=== PATIENT | male | born 1960 | race Caucasian/White ===

== ENCOUNTER 2017-06-03 14:44 | Inpatient (IN) | payer MEDICAID ==
[~2017-06-03] VITALS: Ht 170.2 cm; Wt 103.5 kg
[2017-06-03] MEDS ORDERED: SODIUM CHLORIDE 0.9% 1,000 ML IVB ONE (15:33)
[2017-06-03] MEDS ORDERED: cefTRIAXone 1GM/50ML D5W 50 ML IV ONE (15:45)
[2017-06-03] MEDS ORDERED: ASPirin 81 mg TAB PO ONE (15:45)
[2017-06-03] MEDS ORDERED: KETOROLAC TROMETH 30 MG/ML 1ML VIAL IV ONE (15:45)
[2017-06-03 17:05] LABS: Basophils # (auto) 0.1 uL; Basophils % (auto) 2.2 % (0.0-2.0); Eosinophils # (auto) 0.2 uL; Eosinophils % (auto) 2.3 % (0.0-7.0); Hematocrit 41.9 % (41.0-53.0); Hemoglobin 14.2 g/dL (13.5-17.5); Lymphocytes # (auto) 1.9 uL; Lymphocytes % (auto) 27.4 % (10.0-50.0); Mean Corpuscular Hemoglobin 30.2 pg (28.0-32.0); Mean Corpuscular Hgb Conc. 33.9 g/dL (32.0-36.0); Mean Corpuscular Volume 89.1 fL (80.0-100.0); Monocytes # (auto) 0.6 uL; Monocytes % (auto) 8.6 % (0.0-12.0); Neutrophils # (auto) 4.1 uL; Neutrophils % (auto) 59.5 % (37.0-80.0); Nucleated Red Blood Cells % 0.2 %; Platelet Count (auto) 297 10^3/uL (140-450); White Blood Cell 6.9 10^3/uL (4.4-10.8)
[2017-06-03] MEDS ORDERED: ACETAMINOPHEN/CODEINE#3 (300/30mg) TAB PO ONE (17:15)
[2017-06-03 17:23] LABS: INR 1.14 (0.9-1.15); Partial Thromboplastin Time 27.3 sec (22.64-33.71); Prothrombin Time 12.4 sec (9.37-12.3)
[2017-06-03 17:25] LABS: Alanine Aminotransferase 33 U/L (16-61); Alkaline Phosphatase 67 U/L (45-117); Anion Gap 11 (5-15); Aspartate Aminotransferase 56 U/L (15-37); BUN/Creatinine Ratio 10.3; Bilirubin, Total 0.8 mg/dL (0.2-1.0); Blood Urea Nitrogen 12 mg/dL (7-18); Calcium 8.8 mg/dL (8.5-10.1); Carbon Dioxide 25 mmol/L (21-32); Chloride 101 mmol/L (98-107); GFR African American 82 mL/min; GFR Non-African American 68 mL/min; Glucose 84 mg/dL (74-106); Sodium 137 mmol/L (136-145); Total Protein 8.6 g/dL (6.4-8.2)
[2017-06-03] MEDS ORDERED: ENOXAPARIN SOD 100 MG/1 ML SYRINGE SC ONE (17:45)
[2017-06-03 18:45] LABS: Urine Bacteria NONE SEEN /hpf (None Seen); Urine Blood Negative /uL (Negative); Urine Hyaline Cast FEW /lpf (0 - 2); Urine Mucus FEW (None Seen); Urine Specific Gravity 1.026 (1.001-1.035); Urine WBC 4 /hpf (0 - 3)
[2017-06-03 19:07] LABS: Alcohol, Urine < 3.0 mg/dL (0-5); Amphetamine Screen, Urine NEGATIVE (NEGATIVE); Barbiturate Scree,Urine NEGATIVE (NEGATIVE); Benzodiazephine Screen, Urine POSITIVE (NEGATIVE); Cannabinoid Screen, Urine NEGATIVE (NEGATIVE); Cocaine Screen, Urine NEGATIVE (NEGATIVE); Opiate Scree,Urine POSITIVE (NEGATIVE); Phencyclidine Screen, Urine NEGATIVE (NEGATIVE)
[2017-06-03] MEDS ORDERED: ONDANSETRON HCL 4 MG/2 ML VIAL IV ONE (19:45)
[2017-06-03] MEDS ORDERED: HYDROmorphone HCL 2 MG/ML VL IV ONE (19:45)
[2017-06-03] MEDS ORDERED: IOHEXOL 350 MG/ML 100ML IJ ONE (20:34)
[2017-06-04] VITALS (7 sets, daily range): BP systolic 122–157; BP diastolic 75–95
[2017-06-04] MEDS ORDERED: POTASSIUM CHL 20 Meq TABLET PO ONE (01:15)
[2017-06-04] MEDS ORDERED: ONDANSETRON HCL 4 MG/2 ML VIAL IV ONE (03:00)
[2017-06-04] MEDS ORDERED: HYDROmorphone HCL 2 MG/ML VL IV ONE (03:00)
[2017-06-04] MEDS ORDERED: ACETAMINOPHEN 500 MG TAB PO PRN (04:30)
[2017-06-04] MEDS ORDERED: NITROGLYCERIN 0.4 MG SL TAB SL PRN (04:30)
[2017-06-04] MEDS ORDERED: ONDANSETRON HCL 4 MG/2 ML VIAL IV PRN (04:30)
[2017-06-04] MEDS ORDERED: MORPHINE SULFATE 10 MG/ML INJ 1ML SDV IV PRN (04:30)
[2017-06-04] MEDS: HYDROcodone-ACET 5/325MG TAB PO PRN ×5 (06:10→22:12)
[2017-06-04] MEDS: CLINDAMYCIN 600MG IV 50 ML IV SCH ×3 (06:22→22:11)
[2017-06-04 06:32] LABS: Cholesterol 106 mg/dL (< 200); HDL Cholesterol 28 mg/dL (40-59); LDL Cholesterol 78 mg/dL (< 100); Triglycerides 96 mg/dL (< 150)
[2017-06-04] MEDS: cefTRIAXone 1GM/50ML D5W 50 ML IV SCH (09:00)
[2017-06-04] MEDS: ASPirin-EC 81 mg tab PO SCH (10:08)
[2017-06-04] MEDS: HYDROmorphone HCL 2 MG/ML VL IV PRN ×4 (11:37→23:17)
[2017-06-04] MEDS ORDERED: ZOLP10TA PO (14:12)
[2017-06-04] MEDS ORDERED: FLUO20CA19 PO (14:12)
[2017-06-04] MEDS ORDERED: OMEP20CA74 PO (14:12)
[2017-06-04] MEDS ORDERED: HYDR-4683 PO ×2 (14:12)
[2017-06-04] MEDS ORDERED: ALPR1TAB2 PO (14:12)
[2017-06-04] MEDS: FLUoxetine HCL 20 MG CAP PO SCH (15:11)
[2017-06-04] MEDS: PANTOPRAZOLE 40 MG TAB PO SCH (15:11)
[2017-06-04] MEDS: ZOLPIDEM TARTRATE 5 MG TAB PO PRN (22:12)
[2017-06-05] MEDS: HYDROcodone-ACET 5/325MG TAB PO PRN ×5 (02:05→22:20)
[2017-06-05] MEDS: ALPRAZolam 0.5 MG TAB PO SCH ×3 (02:53→20:16)
[2017-06-05] MEDS: HYDROmorphone HCL 2 MG/ML VL IV PRN ×5 (05:17→22:20)
[2017-06-05 05:35] LABS: Basophils # (auto) 0.1 uL; Basophils % (auto) 1.4 % (0.0-2.0); Eosinophils # (auto) 0.2 uL; Eosinophils % (auto) 3.7 % (0.0-7.0); Hematocrit 35.7 % (41.0-53.0); Hemoglobin 12.1 g/dL (13.5-17.5); Lymphocytes # (auto) 1.5 uL; Lymphocytes % (auto) 28.8 % (10.0-50.0); Mean Corpuscular Hemoglobin 29.9 pg (28.0-32.0); Mean Corpuscular Volume 88.1 fL (80.0-100.0); Monocytes # (auto) 0.5 uL; Neutrophils # (auto) 3.1 uL; Neutrophils % (auto) 57.1 % (37.0-80.0); Nucleated Red Blood Cells % 0.1 %; Platelet Count (auto) 255 10^3/uL (140-450); Red Blood Cells 4.05 10^6/uL (4.5-5.90); White Blood Cell 5.4 10^3/uL (4.4-10.8)
[2017-06-05] MEDS: CLINDAMYCIN 600MG IV 50 ML IV SCH ×3 (05:40→20:15)
[2017-06-05 05:57] VITALS: BP 134/88
[2017-06-05 06:07] LABS: Albumin 2.7 g/dL (3.4-5.0); BUN/Creatinine Ratio 13.2; Bilirubin, Total 0.5 mg/dL (0.2-1.0); Calcium 8.6 mg/dL (8.5-10.1); Potassium 3.2 mmol/L (3.5-5.1); Total Protein 7.6 g/dL (6.4-8.2)
[2017-06-05] MEDS ORDERED: ADENOSINE 86 MG in GIVE UN-DILUTED 0 ML IV ONE (08:45)
[2017-06-05 09:00] VITALS: BP 151/95
[2017-06-05] MEDS: cefTRIAXone 1GM/50ML D5W 50 ML IV SCH (09:06)
[2017-06-05] MEDS ORDERED: ALPRAZolam 0.5 MG TAB PO SCH (10:00)
[2017-06-05] MEDS ORDERED: POTASSIUM CHLORIDE 40 MEQ, LIDOCAINE 1% (LOCAL ANESTH.) 4 ML in SODIUM CHL 0.9% 250 ML IV ONE (10:15)
[2017-06-05] MEDS: ASPirin-EC 81 mg tab PO SCH (10:18)
[2017-06-05] MEDS: PANTOPRAZOLE 40 MG TAB PO SCH (10:19)
[2017-06-05] MEDS: FLUoxetine HCL 20 MG CAP PO SCH (10:19)
[2017-06-05] MEDS ORDERED: IPRATROPIUM BROM 0.5 MG/2.5ML INH SOL ONE (10:51)
[2017-06-05] MEDS ORDERED: ALBUTEROL SULF 2.5 MG/0.5ML(0.5%) NEB SOLN ONE (10:51)
[2017-06-05 17:00] VITALS: BP 146/105
[2017-06-05] MEDS ORDERED: ASCORBIC ACID 500 MG TAB PO ONE (17:30)
[2017-06-05] MEDS ORDERED: MULTIPLE VITAMINS W/ MINERALS TAB PO ONE (17:30)
[2017-06-05] MEDS: ASCORBIC ACID 500 MG TAB PO SCH (20:15)
[2017-06-05 21:58] VITALS: BP 151/91
[2017-06-06] MEDS: ZOLPIDEM TARTRATE 5 MG TAB PO PRN ×2 (02:09→22:37)
[2017-06-06] MEDS: HYDROcodone-ACET 5/325MG TAB PO PRN ×4 (02:27→20:10)
[2017-06-06] MEDS: HYDROmorphone HCL 2 MG/ML VL IV PRN ×6 (02:28→22:30)
[2017-06-06 05:32] VITALS: BP 135/86
[2017-06-06] MEDS: CLINDAMYCIN 600MG IV 50 ML IV SCH ×3 (06:01→21:47)
[2017-06-06 07:55] LABS: BUN/Creatinine Ratio 9.1; Calcium 8.4 mg/dL (8.5-10.1); Potassium 3.3 mmol/L (3.5-5.1)
[2017-06-06 09:00] VITALS: BP 141/98
[2017-06-06] MEDS: cefTRIAXone 1GM/50ML D5W 50 ML IV SCH (09:16)
[2017-06-06] MEDS: ASPirin-EC 81 mg tab PO SCH (09:16)
[2017-06-06] MEDS: ALPRAZolam 0.5 MG TAB PO SCH ×2 (09:16→21:47)
[2017-06-06] MEDS: ASCORBIC ACID 500 MG TAB PO SCH ×2 (09:16→21:47)
[2017-06-06] MEDS: FLUoxetine HCL 20 MG CAP PO SCH (09:16)
[2017-06-06] MEDS: MULTIPLE VITAMINS W/ MINERALS TAB PO SCH (09:17)
[2017-06-06] MEDS: PANTOPRAZOLE 40 MG TAB PO SCH (09:17)
[2017-06-06] MEDS ORDERED: MULTIPLE VITAMINS W/ MINERALS TAB PO SCH (10:00)
[2017-06-06] MEDS ORDERED: POTASSIUM CHLORIDE 40 MEQ, LIDOCAINE 1% (LOCAL ANESTH.) 4 ML in SODIUM CHL 0.9% 250 ML IV ONE (11:00)
[2017-06-06 13:00] VITALS: BP 159/107
[2017-06-06 17:54] VITALS: BP 143/77
[2017-06-06 22:00] VITALS: BP 139/96
[2017-06-07] MEDS: HYDROmorphone HCL 2 MG/ML VL IV PRN (03:22)
[2017-06-07 05:00] VITALS: BP 123/85
[2017-06-07] MEDS: CLINDAMYCIN 600MG IV 50 ML IV SCH (05:42)
[2017-06-07] MEDS: HYDROcodone-ACET 5/325MG TAB PO PRN (05:42)
[2017-06-07 06:47] LABS: Albumin 2.7 g/dL (3.4-5.0); Calcium 8.8 mg/dL (8.5-10.1); Potassium 3.7 mmol/L (3.5-5.1)
[2017-06-07 06:50] LABS: BUN/Creatinine Ratio 11.4
[2017-06-07 06:53] LABS: Bilirubin, Total 0.4 mg/dL (0.2-1.0); Total Protein 7.7 g/dL (6.4-8.2)
[2017-06-07 07:29] LABS: Basophils # (auto) 0 uL; Basophils % (auto) 0.8 % (0.0-2.0); Eosinophils # (auto) 0.4 uL; Eosinophils % (auto) 6.6 % (0.0-7.0); Hematocrit 39.4 % (41.0-53.0); Lymphocytes # (auto) 1.4 uL; Lymphocytes % (auto) 22.3 % (10.0-50.0); Mean Corpuscular Hemoglobin 29.5 pg (28.0-32.0); Mean Corpuscular Volume 89.3 fL (80.0-100.0); Monocytes # (auto) 0.5 uL; Neutrophils # (auto) 3.9 uL; Neutrophils % (auto) 62.3 % (37.0-80.0); Nucleated Red Blood Cells % 0.1 %; Platelet Count (auto) 298 10^3/uL (140-450); Red Blood Cells 4.41 10^6/uL (4.5-5.90); Red Cell Distribution Width 14.5 % (11.8-14.3); White Blood Cell 6.2 10^3/uL (4.4-10.8)
[2017-06-07 08:35] VITALS: BP 158/98
[2017-06-07] MEDS: ALPRAZolam 0.5 MG TAB PO SCH (09:07)
[2017-06-07] MEDS: PANTOPRAZOLE 40 MG TAB PO SCH (09:07)
[2017-06-07] MEDS: MULTIPLE VITAMINS W/ MINERALS TAB PO SCH (09:07)
[2017-06-07] MEDS: FLUoxetine HCL 20 MG CAP PO SCH (09:07)
[2017-06-07] MEDS: cefTRIAXone 1GM/50ML D5W 50 ML IV SCH (09:07)
[2017-06-07] MEDS: ASCORBIC ACID 500 MG TAB PO SCH (09:07)
[2017-06-07] MEDS: ASPirin-EC 81 mg tab PO SCH (09:07)
== END 2017-06-07 09:56 | disposition home or self-care (01) | DRG 383 ==
LOC: ER 14:46 → TELE-EAST 14:47
PROVIDERS: ADMIT Nurse Practitioner Family; ATTEND Internal Medicine
DX: L03.115 Cellulitis of right lower limb (principal); E11.51 Type 2 diabetes mellitus with diabetic peripheral angiopathy without gangrene; E44.0 Moderate protein-calorie malnutrition; L97.919 Non-pressure chronic ulcer of unspecified part of right lower leg with unspecified severity; E87.6 Hypokalemia; R07.89 Other chest pain; I25.10 Atherosclerotic heart disease of native coronary artery without angina pectoris; I10 Essential (primary) hypertension; E78.5 Hyperlipidemia, unspecified; F17.210 Nicotine dependence, cigarettes, uncomplicated; F32.9 Major depressive disorder, single episode, unspecified; F41.9 Anxiety disorder, unspecified; I87.2 Venous insufficiency (chronic) (peripheral); I83.019 Varicose veins of right lower extremity with ulcer of unspecified site; F10.20 Alcohol dependence, uncomplicated; F15.90 Other stimulant use, unspecified, uncomplicated; F11.90 Opioid use, unspecified, uncomplicated; Z68.35 Body mass index [BMI] 35.0-35.9, adult; Z59.0 Homelessness; Z82.3 Family history of stroke; Z91.19 Patient's noncompliance with other medical treatment and regimen; Z79.84 Long term (current) use of oral hypoglycemic drugs; Z86.14 Personal history of Methicillin resistant Staphylococcus aureus infection; Z71.6 Tobacco abuse counseling; Z71.3 Dietary counseling and surveillance
CPT/HCPCS: 36415; 71010; 71275; 73590; 78452; 80048; 80053; 80061; 80307; 81001; 82550; 83036; 83735; 83880; 84443; 84484; 85025; 85379; 85610; 85730; 87040; 87077; 87086; 87186; 87205; 93005; 93017; 93306; 93970; 94640; 96365; 96372; 96375; 96376; J0153; J0696; J2001; J2405; J3490

== ENCOUNTER 2017-12-28 10:12 | Emergency (ER) | payer MEDICAID ==
[~2017-12-28] VITALS: Ht 170.2 cm; Wt 96.2 kg
[~2017-12-28 10:12] MED LIST: ALPR1TAB2 PO; FLUO20CA19 PO; HYDR-4683 PO; OMEP20CA74 PO; ZOLP10TA PO
[2017-12-28] MEDS ORDERED: cloNIDine HCL 0.1 MG TAB PO ONE (10:30)
[2017-12-28 11:06] VITALS: BP 131/85
== END 2017-12-28 11:13 | disposition home or self-care (01) ==
LOC: ER 10:18
DX: I10 Essential (primary) hypertension (principal); F41.9 Anxiety disorder, unspecified; E11.9 Type 2 diabetes mellitus without complications; F17.210 Nicotine dependence, cigarettes, uncomplicated; Z90.49 Acquired absence of other specified parts of digestive tract

== ENCOUNTER 2018-01-18 11:31 | Emergency (ER) | payer MEDICAID ==
[~2018-01-18] VITALS: Ht 177.8 cm; Wt 117.9 kg
[2018-01-18 11:40] VITALS: BP 114/76
[2018-01-18] MEDS ORDERED: KETOROLAC TROMETH 30 MG/ML 1ML VIAL IV ONE (11:45)
[2018-01-18] MEDS ORDERED: KETOROLAC TROMETH 60MG/2ML VIAL IM ONE (12:00)
[2018-01-18 12:09] LABS: Basophils # (auto) 0.1 uL; Basophils % (auto) 1.7 % (0.0-2.0); Eosinophils # (auto) 0.1 uL; Eosinophils % (auto) 2.2 % (0.0-7.0); Hematocrit 41.3 % (41.0-53.0); Hemoglobin 13.5 g/dL (13.5-17.5); Lymphocytes # (auto) 1.8 uL; Lymphocytes % (auto) 43.3 % (10.0-50.0); Mean Corpuscular Hemoglobin 28.9 pg (28.0-32.0); Mean Corpuscular Hgb Conc. 32.7 g/dL (32.0-36.0); Mean Corpuscular Volume 88.4 fL (80.0-100.0); Monocytes # (auto) 0.3 uL; Monocytes % (auto) 6.8 % (0.0-12.0); Neutrophils # (auto) 1.9 uL; Nucleated Red Blood Cells % 0.2 %; Platelet Count (auto) 278 10^3/uL (140-450); Red Blood Cells 4.67 10^6/uL (4.5-5.90); Red Cell Distribution Width 13.9 % (11.8-14.3); White Blood Cell 4.1 10^3/uL (4.4-10.8)
[2018-01-18 12:26] LABS: Alanine Aminotransferase 26 U/L (16-61); Albumin 3.3 g/dL (3.4-5.0); Anion Gap 9 (5-15); Aspartate Aminotransferase 26 U/L (15-37); BUN/Creatinine Ratio 10.6; Blood Urea Nitrogen 10 mg/dL (7-18); Calcium 8.4 mg/dL (8.5-10.1); Carbon Dioxide 22 mmol/L (21-32); Chloride 110 mmol/L (98-107); GFR African American 106 mL/min; GFR Non-African American 88 mL/min; Glucose 95 mg/dL (74-106); Magnesium 2.2 mg/dL (1.6-2.6); Potassium 3.9 mmol/L (3.5-5.1); Sodium 141 mmol/L (136-145)
[2018-01-18 12:31] LABS: Alkaline Phosphatase 84 U/L (45-117); Bilirubin, Total 0.8 mg/dL (0.2-1.0); Total Protein 7.8 g/dL (6.4-8.2)
== END 2018-01-18 15:20 | disposition left against medical advice (07) ==
LOC: EDUNIT# 11:31 → EDBD 11:31 → ER 11:34
DX: R07.89 Other chest pain (principal); F15.10 Other stimulant abuse, uncomplicated; E11.9 Type 2 diabetes mellitus without complications; I10 Essential (primary) hypertension; F17.210 Nicotine dependence, cigarettes, uncomplicated; Z90.49 Acquired absence of other specified parts of digestive tract; Z79.899 Other long term (current) drug therapy
CPT/HCPCS: 36415; 71045; 80053; 83735; 84484; 85025; 93005; 94761

== ENCOUNTER 2018-01-29 00:08 | Emergency (ER) | payer MEDICAID ==
[~2018-01-29] VITALS: Ht 170.2 cm; Wt 111.6 kg
[2018-01-29 00:20] VITALS: BP 111/71
== END 2018-01-29 03:39 | disposition left against medical advice (07) ==
LOC: ER 00:10
DX: R07.9 Chest pain, unspecified (principal); Z53.21 Procedure and treatment not carried out due to patient leaving prior to being seen by health care provider
CPT/HCPCS: 71045; 93005

== ENCOUNTER 2018-04-01 21:20 | Emergency (ER) | payer MEDICAID ==
[~2018-04-01] VITALS: Ht 170.2 cm; Wt 99.8 kg
[2018-04-01 21:33] VITALS: BP 172/106
[2018-04-01 22:01] LABS: Basophils # (auto) 0.1 uL; Basophils % (auto) 0.9 % (0.0-2.0); Eosinophils # (auto) 0.3 uL; Eosinophils % (auto) 5.1 % (0.0-7.0); Hematocrit 35.1 % (41.0-53.0); Hemoglobin 11.9 g/dL (13.5-17.5); Lymphocytes # (auto) 1.4 uL; Lymphocytes % (auto) 24.1 % (10.0-50.0); Mean Corpuscular Hemoglobin 30.1 pg (28.0-32.0); Mean Corpuscular Hgb Conc. 33.8 g/dL (32.0-36.0); Monocytes # (auto) 0.5 uL; Neutrophils # (auto) 3.6 uL; Neutrophils % (auto) 61.9 % (37.0-80.0); Nucleated Red Blood Cells % 0.1 %; Platelet Count (auto) 189 10^3/uL (140-450); Red Blood Cells 3.95 10^6/uL (4.5-5.90); Red Cell Distribution Width 14.1 % (11.8-14.3); White Blood Cell 5.8 10^3/uL (4.4-10.8)
[2018-04-01 22:18] LABS: Albumin 2.9 g/dL (3.4-5.0); Anion Gap 11 (5-15); Blood Urea Nitrogen 11 mg/dL (7-18); Calcium 8.1 mg/dL (8.5-10.1); Carbon Dioxide 22 mmol/L (21-32); Chloride 109 mmol/L (98-107); Glucose 114 mg/dL (74-106); Potassium 3.7 mmol/L (3.5-5.1); Sodium 142 mmol/L (136-145)
[2018-04-01 22:19] LABS: GFR African American 109 mL/min; GFR Non-African American 90 mL/min; INR 1.07 (0.9-1.15); Partial Thromboplastin Time 29.6 sec (23.78-33.04); Prothrombin Time 11.4 sec (9.27-12.13)
[2018-04-01 22:25] LABS: Alanine Aminotransferase 42 U/L (16-61); Alkaline Phosphatase 72 U/L (45-117); Aspartate Aminotransferase 36 U/L (15-37); Bilirubin, Total 0.6 mg/dL (0.2-1.0); Total Protein 7.2 g/dL (6.4-8.2)
== END 2018-04-02 01:10 | disposition left against medical advice (07) ==
LOC: EDBD 21:20 → ER 21:28
DX: R07.89 Other chest pain (principal); R10.9 Unspecified abdominal pain; R06.02 Shortness of breath; Z53.21 Procedure and treatment not carried out due to patient leaving prior to being seen by health care provider
CPT/HCPCS: 36415; 80053; 80320; 83880; 84484; 85025; 85610; 85730

== ENCOUNTER 2018-10-01 15:09 | Emergency (ER) | payer MEDICAID ==
[~2018-10-01] VITALS: Ht 180.3 cm; Wt 90.7 kg
[2018-10-01] MEDS ORDERED: SODIUM CHLORIDE 0.9% 1,000 ML IVB ONE (15:25)
[2018-10-01] MEDS ORDERED: NALOXONE HCL 1MG/ML 2ML SYRINGE IV ONE (15:30)
[2018-10-01 18:27] LABS: Basophils # (auto) 0 uL; Basophils % (auto) 0.3 % (0.0-2.0); Eosinophils # (auto) 0 uL; Eosinophils % (auto) 0.3 % (0.0-7.0); Hematocrit 45.7 % (41.0-53.0); Hemoglobin 14.8 g/dL (13.5-17.5); Lymphocytes # (auto) 0.7 uL; Lymphocytes % (auto) 6.3 % (10.0-50.0); Mean Corpuscular Hemoglobin 30.6 pg (28.0-32.0); Mean Corpuscular Hgb Conc. 32.3 g/dL (32.0-36.0); Mean Corpuscular Volume 94.5 fL (80.0-100.0); Monocytes # (auto) 0.4 uL; Monocytes % (auto) 3.6 % (0.0-12.0); Neutrophils # (auto) 10.6 uL; Neutrophils % (auto) 89.5 % (37.0-80.0); Platelet Count (auto) 242 10^3/uL (140-450); Red Blood Cells 4.84 10^6/uL (4.5-5.90); Red Cell Distribution Width 13.8 % (11.8-14.3); White Blood Cell 11.8 10^3/uL (4.4-10.8)
[2018-10-01 18:45] LABS: Alanine Aminotransferase 82 U/L (16-61); Albumin 3.7 g/dL (3.4-5.0); Anion Gap 5 (5-15); Aspartate Aminotransferase 161 U/L (15-37); Blood Alcohol < 3.0 mg/dL (0-5); Blood Urea Nitrogen 12 mg/dL (7-18); Calcium 9.1 mg/dL (8.5-10.1); Carbon Dioxide 26 mmol/L (21-32); Chloride 108 mmol/L (98-107); Glucose 119 mg/dL (74-106); Magnesium 2.6 mg/dL (1.6-2.6); Potassium 4.2 mmol/L (3.5-5.1); Sodium 139 mmol/L (136-145)
[2018-10-01 18:50] LABS: Alkaline Phosphatase 92 U/L (45-117); BUN/Creatinine Ratio 10.9; Bilirubin, Total 0.9 mg/dL (0.2-1.0); GFR African American 88 mL/min; GFR Non-African American 73 mL/min; Total Protein 8.6 g/dL (6.4-8.2)
[2018-10-01 22:00] VITALS: BP 112/62
== END 2018-10-01 22:38 | disposition home or self-care (01) ==
LOC: EDUNIT# 15:09 → EDBD 15:09 → ER 15:19
DX: F11.10 Opioid abuse, uncomplicated (principal); J18.9 Pneumonia, unspecified organism; E11.9 Type 2 diabetes mellitus without complications; I10 Essential (primary) hypertension; F17.210 Nicotine dependence, cigarettes, uncomplicated; F15.90 Other stimulant use, unspecified, uncomplicated; Z79.899 Other long term (current) drug therapy; Z90.49 Acquired absence of other specified parts of digestive tract
CPT/HCPCS: 36415; 71045; 80053; 80320; 83735; 83880; 84484; 85025; 93005; 94761; 96361; 96374; 99284; J2310; J7030

== ENCOUNTER 2018-11-16 20:21 | Emergency (ER) | payer MEDICAID ==
[~2018-11-16] VITALS: Ht 170.2 cm; Wt 99.8 kg
[2018-11-16 21:13] VITALS: BP 168/89
[2018-11-16] MEDS ORDERED: HYDROcodone-ACET 10/325MG TAB PO ONE (22:15)
[2018-11-16] MEDS ORDERED: BACLOFEN 10 MG TAB PO ONE (22:15)
== END 2018-11-16 22:45 | disposition home or self-care (01) ==
LOC: ER 20:21
DX: F31.9 Bipolar disorder, unspecified (principal); G89.29 Other chronic pain; F41.9 Anxiety disorder, unspecified; E11.9 Type 2 diabetes mellitus without complications; I10 Essential (primary) hypertension; F17.210 Nicotine dependence, cigarettes, uncomplicated; F15.90 Other stimulant use, unspecified, uncomplicated; Z76.0 Encounter for issue of repeat prescription; Z90.49 Acquired absence of other specified parts of digestive tract

== ENCOUNTER 2019-02-21 09:32 | Emergency (ER) | payer MEDICAID ==
[~2019-02-21] VITALS: Ht 170.2 cm; Wt 99.8 kg
[~2019-02-21 09:32] MED LIST changes: -HYDR-4683 PO; +HYDR-4833 PO
[2019-02-21 10:29] VITALS: BP 118/70
[2019-02-21] MEDS ORDERED: NITROGLYCERIN 0.4 MG SL TAB SL ONE (11:00)
[2019-02-21] MEDS ORDERED: ASPirin 81 mg TAB PO ONE (11:00)
[2019-02-21 11:01] LABS: Basophils # (auto) 0.1 uL; Eosinophils # (auto) 0.2 uL; Eosinophils % (auto) 3.2 % (0.0-7.0); Hematocrit 46.6 % (41.0-53.0); Hemoglobin 15.6 g/dL (13.5-17.5); Lymphocytes # (auto) 1.7 uL; Lymphocytes % (auto) 23.7 % (10.0-50.0); Mean Corpuscular Hemoglobin 30.2 pg (28.0-32.0); Mean Corpuscular Hgb Conc. 33.5 g/dL (32.0-36.0); Monocytes # (auto) 0.7 uL; Monocytes % (auto) 10.1 % (0.0-12.0); Neutrophils # (auto) 4.4 uL; Nucleated Red Blood Cells % 0.1 %; Platelet Count (auto) 210 10^3/uL (140-450); Red Blood Cells 5.18 10^6/uL (4.5-5.90); Red Cell Distribution Width 14.3 % (11.8-14.3); White Blood Cell 7.1 10^3/uL (4.4-10.8)
[2019-02-21 11:16] LABS: Albumin 3.8 g/dL (3.4-5.0); Anion Gap 8 (5-15); Blood Urea Nitrogen 14 mg/dL (7-18); Calcium 8.8 mg/dL (8.5-10.1); Carbon Dioxide 23 mmol/L (21-32); Chloride 109 mmol/L (98-107); Glucose 105 mg/dL (74-106); Magnesium 2.4 mg/dL (1.6-2.6); Potassium 3.5 mmol/L (3.5-5.1); Sodium 140 mmol/L (136-145)
[2019-02-21 11:21] LABS: Alanine Aminotransferase 39 U/L (16-61); Alkaline Phosphatase 80 U/L (45-117); Aspartate Aminotransferase 34 U/L (15-37); BUN/Creatinine Ratio 12.6; Bilirubin, Total 1.7 mg/dL (0.2-1.0); GFR African American 87 mL/min; GFR Non-African American 72 mL/min; Total Protein 8.4 g/dL (6.4-8.2)
[2019-02-21 18:01] LABS: Urine Bacteria NONE SEEN /hpf (None Seen); Urine Blood Negative /uL (Negative); Urine Mucus FEW (None Seen); Urine Specific Gravity 1.005 (1.001-1.035); Urine WBC <1 /hpf (0 - 3)
== END 2019-02-21 11:35 | disposition left against medical advice (07) ==
LOC: ER 09:32 → EDBD 09:32 → EDUNIT# 09:32 → ER 11:35
DX: R07.89 Other chest pain (principal); I11.0 Hypertensive heart disease with heart failure; I50.9 Heart failure, unspecified; E11.9 Type 2 diabetes mellitus without complications; F17.210 Nicotine dependence, cigarettes, uncomplicated; Z90.49 Acquired absence of other specified parts of digestive tract; Z79.899 Other long term (current) drug therapy
CPT/HCPCS: 36415; 71045; 80053; 81001; 83735; 83880; 84484; 85025; 93005; 94761

== ENCOUNTER 2019-03-17 15:09 | Emergency (ER) | payer MEDICAID ==
[~2019-03-17] VITALS: Ht 170.2 cm; Wt 102.1 kg
[2019-03-17 15:44] LABS: Basophils # (auto) 0.1 uL; Basophils % (auto) 1.2 % (0.0-2.0); Eosinophils # (auto) 0.2 uL; Eosinophils % (auto) 2.5 % (0.0-7.0); Hematocrit 50.7 % (41.0-53.0); Hemoglobin 16.9 g/dL (13.5-17.5); Lymphocytes # (auto) 1.7 uL; Lymphocytes % (auto) 23.5 % (10.0-50.0); Mean Corpuscular Hemoglobin 30.2 pg (28.0-32.0); Mean Corpuscular Hgb Conc. 33.3 g/dL (32.0-36.0); Mean Corpuscular Volume 90.6 fL (80.0-100.0); Monocytes # (auto) 0.6 uL; Neutrophils # (auto) 4.6 uL; Neutrophils % (auto) 64.8 % (37.0-80.0); Nucleated Red Blood Cells % 0.1 %; Platelet Count (auto) 230 10^3/uL (140-450); Red Blood Cells 5.59 10^6/uL (4.5-5.90); Red Cell Distribution Width 14.5 % (11.8-14.3); White Blood Cell 7.1 10^3/uL (4.4-10.8)
[2019-03-17 16:02] LABS: Alanine Aminotransferase 131 U/L (16-61); Albumin 4.3 g/dL (3.4-5.0); Anion Gap 9 (5-15); Blood Urea Nitrogen 14 mg/dL (7-18); Calcium 9.2 mg/dL (8.5-10.1); Carbon Dioxide 20 mmol/L (21-32); Chloride 109 mmol/L (98-107); Glucose 105 mg/dL (74-106); Potassium 3.4 mmol/L (3.5-5.1); Sodium 138 mmol/L (136-145)
[2019-03-17 16:06] LABS: Alkaline Phosphatase 102 U/L (45-117); Aspartate Aminotransferase 80 U/L (15-37); BUN/Creatinine Ratio 10.9; Bilirubin, Total 1.2 mg/dL (0.2-1.0); GFR African American 74 mL/min; GFR Non-African American 61 mL/min; Total Protein 9.2 g/dL (6.4-8.2)
[2019-03-17 16:14] VITALS: BP 141/101
[2019-03-17] MEDS ORDERED: POTASSIUM EFFERVESENT TAB 25 MEQ PO ONE (17:00)
== END 2019-03-17 18:06 | disposition home or self-care (01) ==
LOC: ER 15:13
DX: I11.0 Hypertensive heart disease with heart failure (principal); I50.9 Heart failure, unspecified; F41.1 Generalized anxiety disorder; K21.9 Gastro-esophageal reflux disease without esophagitis; E11.9 Type 2 diabetes mellitus without complications; Z90.49 Acquired absence of other specified parts of digestive tract; F17.210 Nicotine dependence, cigarettes, uncomplicated
CPT/HCPCS: 36415; 80053; 84484; 85025; 93005

== ENCOUNTER 2019-04-13 20:22 | Emergency (ER) | payer MEDICAID ==
[~2019-04-13] VITALS: Ht 170.2 cm; Wt 99.8 kg
[2019-04-13 21:15] VITALS: BP 135/95
[2019-04-13 22:02] LABS: Basophils # (auto) 0.1 uL; Basophils % (auto) 1.2 % (0.0-2.0); Eosinophils # (auto) 0.1 uL; Eosinophils % (auto) 1.5 % (0.0-7.0); Hematocrit 43.1 % (41.0-53.0); Hemoglobin 14.5 g/dL (13.5-17.5); Lymphocytes # (auto) 1.4 uL; Lymphocytes % (auto) 24.9 % (10.0-50.0); Mean Corpuscular Hemoglobin 31.2 pg (28.0-32.0); Mean Corpuscular Hgb Conc. 33.6 g/dL (32.0-36.0); Mean Corpuscular Volume 92.7 fL (80.0-100.0); Monocytes # (auto) 0.5 uL; Monocytes % (auto) 8.8 % (0.0-12.0); Neutrophils # (auto) 3.7 uL; Neutrophils % (auto) 63.6 % (37.0-80.0); Nucleated Red Blood Cells % 0.1 %; Platelet Count (auto) 193 10^3/uL (140-450); Red Blood Cells 4.65 10^6/uL (4.5-5.90); Red Cell Distribution Width 14.9 % (11.8-14.3); White Blood Cell 5.7 10^3/uL (4.4-10.8)
[2019-04-13 22:22] LABS: Albumin 3.3 g/dL (3.4-5.0); Anion Gap 11 (5-15); Blood Urea Nitrogen 7 mg/dL (7-18); Calcium 8.2 mg/dL (8.5-10.1); Carbon Dioxide 22 mmol/L (21-32); Chloride 109 mmol/L (98-107); Glucose 123 mg/dL (74-106); Potassium 3.2 mmol/L (3.5-5.1); Sodium 142 mmol/L (136-145)
[2019-04-13 22:28] LABS: Alanine Aminotransferase 86 U/L (16-61); Alkaline Phosphatase 90 U/L (45-117); Aspartate Aminotransferase 58 U/L (15-37); BUN/Creatinine Ratio 6.8; Bilirubin, Total 1.2 mg/dL (0.2-1.0); GFR African American 95 mL/min; GFR Non-African American 79 mL/min; Total Protein 7.3 g/dL (6.4-8.2)
== END 2019-04-14 01:13 | disposition left against medical advice (07) ==
LOC: ER 20:22
DX: R06.02 Shortness of breath (principal); R07.89 Other chest pain; Z53.21 Procedure and treatment not carried out due to patient leaving prior to being seen by health care provider
CPT/HCPCS: 36415; 80053; 83880; 84484; 85025

== ENCOUNTER 2019-07-28 08:17 | Inpatient (IN) | payer MEDICAID ==
[~2019-07-28] VITALS: Ht 170.2 cm
[2019-07-28] MEDS ORDERED: LORazepam 0.5 MG TAB PO ONE (08:30)
[2019-07-28] MEDS ORDERED: cloNIDine HCL 0.1 MG TAB PO ONE (08:30)
[2019-07-28] MEDS ORDERED: amLODIPine BESYLATE 5 MG TAB PO ONE (09:30)
[2019-07-28] MEDS ORDERED: ACETAMINOPHEN 325 MG TAB PO ONE (12:15)
[2019-07-28] MEDS ORDERED: HYDROcodone-ACET 10/325MG TAB PO ONE (12:30)
[2019-07-28 13:42] LABS: Basophils # (auto) 0.1 uL; Basophils % (auto) 2.3 % (0.0-2.0); Eosinophils # (auto) 0.2 uL; Eosinophils % (auto) 4.3 % (0.0-7.0); Hematocrit 43.9 % (41.0-53.0); Hemoglobin 15.1 g/dL (13.5-17.5); Lymphocytes # (auto) 1.1 uL; Lymphocytes % (auto) 22.5 % (10.0-50.0); Mean Corpuscular Hgb Conc. 34.4 g/dL (32.0-36.0); Mean Corpuscular Volume 93.1 fL (80.0-100.0); Monocytes # (auto) 0.4 uL; Monocytes % (auto) 7.8 % (0.0-12.0); Neutrophils # (auto) 3.1 uL; Neutrophils % (auto) 63.1 % (37.0-80.0); Platelet Count (auto) 175 10^3/uL (140-450); Red Blood Cells 4.72 10^6/uL (4.5-5.90); White Blood Cell 4.9 10^3/uL (4.4-10.8)
[2019-07-28 13:58] LABS: Albumin 3.2 g/dL (3.4-5.0); Anion Gap 6 (5-15); Blood Urea Nitrogen 16 mg/dL (7-18); Calcium 8.5 mg/dL (8.5-10.1); Carbon Dioxide 22 mmol/L (21-32); Chloride 112 mmol/L (98-107); GFR African American 127 mL/min; GFR Non-African American 105 mL/min; Glucose 111 mg/dL (74-106); Potassium 3.8 mmol/L (3.5-5.1); Sodium 140 mmol/L (136-145)
[2019-07-28 14:03] LABS: Alanine Aminotransferase 144 U/L (16-61); Alkaline Phosphatase 82 U/L (45-117); Aspartate Aminotransferase 94 U/L (15-37); Bilirubin, Total 0.7 mg/dL (0.2-1.0); Total Protein 7.4 g/dL (6.4-8.2)
[2019-07-28] MEDS ORDERED: LABETALOL HCL 5 MG/ML 4ML SYRINGE IV PRN (16:00)
[2019-07-28] MEDS ORDERED: HYDROcodone-ACET 5/325MG TAB PO PRN (16:00)
[2019-07-28] MEDS ORDERED: ONDANSETRON HCL 4 MG/2 ML VIAL IV PRN (16:00)
[2019-07-28] MEDS ORDERED: MORPHINE SULF INJ 2 MG/ML SYRINGE 1ML IV PRN (16:00)
[2019-07-28] MEDS ORDERED: ACETAMINOPHEN 500 MG TAB PO PRN (16:00)
[2019-07-28] MEDS ORDERED: NITROGLYCERIN 0.4 MG SL TAB SL PRN (16:00)
[2019-07-28] MEDS ORDERED: ZOLPIDEM TARTRATE 5 MG TAB PO PRN (16:00)
[2019-07-28] MEDS ORDERED: ENALAPRILAT 1.25 MG/ML-1ML VIAL IV PRN (17:15)
--- NOTE | 2019-07-28 17:38 | NUR ---
Telemetry admit from ER JR RLIEY admitted to Telemetry unit after SBAR received. Patient oriented to Jose A Almeida, primary RN, unit, room, bed, and unit policies regarding patient care and visiting hours. Patient now on continuous telemetry monitoring, tele box # 50 and telemetry reading on arrival to unit is Sinus Rhythm. Patient placed on bedside oxygen @ 2L/min, weighed by bedscale and encouraged to call if they need something. All questions and concerns addressed, patient verbalized understanding.
[2019-07-28] MEDS: clonazePAM 0.5 MG TAB PO PRN (18:28)
--- NOTE | 2019-07-28 20:00 | NUR ---
Opening Shift Note Assumed care of patient, awake and alert, ambulatory watching television. No S/S of distress/SOB or pain. Instructed on POC and to call for assist PRN, will continue to monitor for changes Q1hr and PRN.Asking for snack, given valdemar olmstead.
[2019-07-28] MEDS: LISINOPRIL 20 MG TAB PO SCH (21:20)
[2019-07-28] MEDS: METOPROLOL TARTRATE 50 MG TAB PO SCH (21:20)
[2019-07-28 22:00] VITALS: BP 127/80
--- NOTE | 2019-07-28 22:00 | NUR ---
Patient left the room with out telling to the Nurse, asked the security to find the patient.
--- NOTE | 2019-07-28 22:25 | NUR ---
Patient cameback from roaming around the unit and in E.R.
[2019-07-28] MEDS ORDERED: oxyCODONE ER 10 MG TAB PO ONE (23:00)
[2019-07-29] MEDS ORDERED: OXY20CRT PO (00:34)
[2019-07-29] MEDS ORDERED: OXY10CRT PO (00:34)
[2019-07-29] MEDS ORDERED: POTA10TA51 PO (01:02)
[2019-07-29] MEDS ORDERED: LOSA-39 PO (01:02)
[2019-07-29] MEDS ORDERED: FLUO1TAB14 PO (01:02)
[2019-07-29] MEDS ORDERED: ZOLP12.52 PO (01:02)
[2019-07-29] MEDS ORDERED: CLON0.1T PO (01:02)
[2019-07-29] MEDS ORDERED: LITH300C3 PO (01:02)
[2019-07-29] MEDS ORDERED: OME20GT PO (01:02)
[2019-07-29] MEDS ORDERED: FURO1TAB33 PO (01:02)
[2019-07-29] MEDS ORDERED: CLON1TAB10 PO (01:02)
[2019-07-29] MEDS ORDERED: PERCOT PO (01:08)
[2019-07-29 05:39] VITALS: BP 155/96
[2019-07-29] MEDS: clonazePAM 0.5 MG TAB PO PRN ×2 (05:48→18:34)
[2019-07-29] MEDS: OXYCODONE W/ ACETAMINOPHEN 5/325MG TABLET PO PRN ×2 (05:48→21:16)
[2019-07-29 06:03] LABS: Basophils # (auto) 0 uL; Eosinophils # (auto) 0.2 uL; Eosinophils % (auto) 5.2 % (0.0-7.0); Hematocrit 43.5 % (41.0-53.0); Hemoglobin 14.6 g/dL (13.5-17.5); Lymphocytes # (auto) 1.5 uL; Lymphocytes % (auto) 34.1 % (10.0-50.0); Mean Corpuscular Hemoglobin 31.2 pg (28.0-32.0); Mean Corpuscular Hgb Conc. 33.5 g/dL (32.0-36.0); Mean Corpuscular Volume 93.1 fL (80.0-100.0); Monocytes # (auto) 0.4 uL; Monocytes % (auto) 8.3 % (0.0-12.0); Neutrophils # (auto) 2.3 uL; Neutrophils % (auto) 51.4 % (37.0-80.0); Nucleated Red Blood Cells % 0.1 %; Platelet Count (auto) 181 10^3/uL (140-450); Red Blood Cells 4.67 10^6/uL (4.5-5.90); Red Cell Distribution Width 13.9 % (11.8-14.3); White Blood Cell 4.4 10^3/uL (4.4-10.8)
[2019-07-29 06:25] LABS: Calcium 8.3 mg/dL (8.5-10.1)
[2019-07-29 06:30] LABS: BUN/Creatinine Ratio 20.7
--- NOTE | 2019-07-29 07:27 | NUR ---
Report given to Deena Castillo, patient is resting no respiratory distress, told Deena to follow-up the home med. of the patient if they want to reorder.
--- NOTE | 2019-07-29 08:05 | NUR ---
Opening Shift Note Assumed care of patient, awake and alert to self, ambulating in room without gown on and tele monitor off. Patient reoriented to place and encouraged to keep heart monitor on. No S/S of distress/SOB or pain. Instructed on POC and to call for assist PRN, will continue to monitor for changes Q1hr and PRN.
--- NOTE | 2019-07-29 08:50 | NUR ---
Confused Patient ambulating in room with unsteady gate, and appears very drowsy. Unable to stay awake long enough to complete sentences. Pill bottle noticed on bed labelled [place], with more than one kind of pills in bottle. Patient stated that he did not take any of the pills. Will have patient check through his personal belongings to see if there are any more medications at bedside.
[2019-07-29 09:00] VITALS: BP 156/82
--- NOTE | 2019-07-29 09:00 | NUR ---
Personal Belongings Patient is taking a long time to go though his personal belongings and states he does not know if he has any more pills in his suitcase. Will call security for assistance.
--- NOTE | 2019-07-29 09:10 | NUR ---
Personal Belongings Security and RN is at bedside with patent, assessing his personal belongings.
--- NOTE | 2019-07-29 09:20 | NUR ---
Personal Belongings Two pill bottles retrieved from patient, one labelled Oark and the other Aspirin. However, both bottles had various kind of medications in it. Both taken to the pharmacy. Patient also had a pocket knife and a canister of Butane in with his belongings, same given to the security. Patient aware that they will be returned upon discharge.
[2019-07-29] MEDS: FAMOTIDINE 20 MG TAB PO SCH (09:50)
[2019-07-29] MEDS: METOPROLOL TARTRATE 50 MG TAB PO SCH ×2 (09:51→21:18)
[2019-07-29] MEDS: LISINOPRIL 20 MG TAB PO SCH ×2 (09:51→21:18)
[2019-07-29] MEDS ORDERED: FLUoxetine HCL 20 MG CAP PO SCH (10:00)
[2019-07-29] MEDS: FLUoxetine HCL 20 MG CAP PO SCH (10:00)
--- NOTE | 2019-07-29 11:55 | NUR ---
Off Unit Patient left unit without informing his nurse. qualitative executive researcher is aware and when to check check for patient downstairs.
--- NOTE | 2019-07-29 12:07 | NUR ---
Off Unit senior care assistant saw patient, but he refused to return to unit without having a cigarette.
--- NOTE | 2019-07-29 12:15 | NUR ---
On Unit Patient stated that he left unit to go smoke. Reminded patient to inform his RN before leaving unit.
[2019-07-29] MEDS ORDERED: LORazepam 2MG/ML-1ML VIAL IV PRN (12:45)
[2019-07-29 12:58] VITALS: BP 159/97
--- NOTE | 2019-07-29 16:30 | NUR ---
Rounding Patient ambulating in room, alert and oriented x 4. Patient is able to complete sentences and hold a normal conversation without falling asleep. Will continue to monitor.
[2019-07-29 16:57] VITALS: BP 127/66
--- NOTE | 2019-07-29 17:00 | NUR ---
Off Unit Patient requested permission to go outside to smoke.
--- NOTE | 2019-07-29 17:15 | NUR ---
On Unit Patient ambulated to unit. No distress noted.
--- NOTE | 2019-07-29 20:00 | NUR ---
Opening Shift Note Assumed care of patient, awake and alert. No S/S of distress/SOB or pain. Instructed on POC and to call for assist PRN, will continue to monitor for changes Q1hr and PRN.Asked for food given jazmine carey.
[2019-07-29 21:01] VITALS: BP 137/91
--- NOTE | 2019-07-29 23:38 | NUR ---
Tele psyche.consult done, with treatment and recommendations of 1.Patient is at low risk for danger to self and others.2.no indication for inpatient psych admission or invol.psych hold 5150,3.continue psych treatment per his outpatient psychiatrist.4.I recommend to continue Prozac,Dunnell, stop xanax and start Hydroxyzine 25mg.p.o. tid prn insomnia or anxiety, patient behaviors increase concerns about drug seeking behaviors
[2019-07-30 04:33] VITALS: BP 163/110
[2019-07-30 06:15] VITALS: BP 156/111
[2019-07-30] MEDS: OXYCODONE W/ ACETAMINOPHEN 5/325MG TABLET PO PRN ×2 (06:19→08:34)
[2019-07-30] MEDS: clonazePAM 0.5 MG TAB PO PRN (06:27)
--- NOTE | 2019-07-30 07:36 | NUR ---
Opening Shift Note Assumed care of patient, awake and alert sitting in chair in hallway. Patient stated he refuses to enter the room at this time as he is aware of his roommates medical history of HIV. He No S/S of distress/SOB or pain. Educated patient on the transmission of HIV and he is safe having the current roommate present. Patient stated he has kids at home and does not want to bring it home with him. He said if he does not get a room change he will be leaving. I let him know that I will check with the charge nurse as to see if it is possible to accommodate his wish to change rooms but we are full on the floor and may not be able to accommodate his request. Addendum: 07/30/19 at 1016 by JAMILA SZYMANSKI RN RN Wrong patient please disregard note
--- NOTE | 2019-07-30 07:42 | NUR ---
Report given to Deena Summers, patient is asleep,
[2019-07-30 08:00] VITALS: BP 157/82
--- NOTE | 2019-07-30 08:20 | NUR ---
Notified patient we will not be able to accommodate his wish to move rooms as there are none to move him to. Patient became very irritated and stated he was leaving and would not stay in that room with someone with HIV. He agreed to sign the AMA paper and leave. Addendum: 07/30/19 at 1018 by JAMILA SZYMANSKI RN RN Wrong patient please disregard note
[2019-07-30] MEDS: FLUoxetine HCL 20 MG CAP PO SCH (10:00)
[2019-07-30] MEDS: FAMOTIDINE 20 MG TAB PO SCH (10:00)
[2019-07-30] MEDS: METOPROLOL TARTRATE 50 MG TAB PO SCH (10:00)
[2019-07-30] MEDS: LISINOPRIL 20 MG TAB PO SCH (10:00)
[2019-07-30] MEDS ORDERED: GADOTERIDOL 279.3mg/mL 20ml Vial IV ONE (11:57)
[2019-07-30 12:00] VITALS: BP 138/113
[2019-07-30] MEDS ORDERED: LABETALOL HCL 5 MG/ML ML 20ML VIAL IV PRN (12:30)
--- NOTE | 2019-07-30 12:30 | NUR ---
PATIENT DOWN FOR BRAIN MRI
[2019-07-30 14:14] VITALS: BP 135/79
[2019-07-30] MEDS ORDERED: LABE200T18 PO (14:38)
[2019-07-30] MEDS ORDERED: LOSA-39 PO (14:38)
[2019-07-30] MEDS ORDERED: FLUO1TAB14 PO (14:38)
--- NOTE | 2019-07-30 16:18 | NUR ---
SPOKE WITH JOAN MCKAY TURBO ELECTRIC OPERATOR REGARDING THE ORDERS FOR HOME HEALTH NEEDED REGARDING PATIENTS NEED OF MEDICATION MANAGEMENT, VITALS MANAGEMENT AND SAFETY EVALUATION. SHE STATED THE PATIENT IS GOING TO BE USING [facility] AND IS READY FOR DISCHARGE.
--- NOTE | 2019-07-30 16:29 | NUR ---
Discharge planning per SS consult, patient has orders for home health. Referral was sent to [facility] [phone], placed a follow up call, spoke with Tanna and was advised that they will accept this patient and start of care will be within 24-48 hours. Auth obtained [id number]. Nurse Kathie was advised of dc plan.
--- NOTE | 2019-07-30 16:37 | NUR ---
Discharge instructions given as ordered. Encourage to follow up with Primary care provider Dr. Hooper as instructed. All questions and concerns addressed. Patient verbalized understanding. Medication reconciliation form completed and copy given to patient. Home medications held in Pharmacy returned to patient. IV removed with catheter intact, pressure dressing applied. Telemetry unit returned to ICU. Patient taken to vehicle via wheelchair with all personal belongings, accompanied by staff and family member. No distress noted at time of departure.
== END 2019-07-30 16:37 | disposition home health service (06) | DRG 58 ==
LOC: ER 08:17 → TELE 08:18 → MERGE 08:18 → TELE-WESTW 17:38
PROVIDERS: ADMIT Nurse Practitioner Acute Care; ATTEND Internal Medicine
DX: D32.0 Benign neoplasm of cerebral meninges (principal); E78.5 Hyperlipidemia, unspecified; I16.0 Hypertensive urgency; M54.5 Low back pain; F41.1 Generalized anxiety disorder; F31.9 Bipolar disorder, unspecified; J44.9 Chronic obstructive pulmonary disease, unspecified; F17.210 Nicotine dependence, cigarettes, uncomplicated; I10 Essential (primary) hypertension; G89.29 Other chronic pain; H53.9 Unspecified visual disturbance; Z82.49 Family history of ischemic heart disease and other diseases of the circulatory system; Z91.14 Patient's other noncompliance with medication regimen
CPT/HCPCS: 36415; 70450; 70551; 71046; 80048; 80053; 80061; 80178; 84484; 85025; 96374; G0378

== ENCOUNTER 2019-08-09 12:47 | Emergency (ER) | payer MEDICAID ==
[~2019-08-09] VITALS: Ht 177.8 cm; Wt 113.4 kg
[~2019-08-09 12:47] MED LIST changes: +CLON1TAB10 PO; +FLUO1TAB14 PO; +FURO1TAB33 PO; +LABE200T18 PO; +LITH300C3 PO; +LOSA-39 PO; +OME20GT PO; +OXY10CRT PO; +OXY20CRT PO; +PERCOT PO; +POTA10TA51 PO; +ZOLP12.52 PO
[2019-08-09] MEDS ORDERED: SODIUM CHLORIDE 0.9% 1,000 ML IVB ONE (13:03)
[2019-08-09 13:06] VITALS: BP 135/69
[2019-08-09] MEDS ORDERED: PROMETHAZINE HCL 25 MG/ML 1ML IV ONE (13:15)
[2019-08-09] MEDS ORDERED: NALOXONE HCL 1MG/ML 2ML SYRINGE ONE (14:10)
[2019-08-09] MEDS ORDERED: NALOXONE HCL 1MG/ML 2ML SYRINGE IV ONE (14:15)
== END 2019-08-09 14:53 | disposition left against medical advice (07) ==
LOC: EDBD 12:47 → ER 12:47
DX: T40.1X1A Poisoning by heroin, accidental (unintentional), initial encounter (principal); R41.82 Altered mental status, unspecified; I11.0 Hypertensive heart disease with heart failure; I50.9 Heart failure, unspecified; F41.9 Anxiety disorder, unspecified; F32.9 Major depressive disorder, single episode, unspecified; E86.0 Dehydration; Z79.899 Other long term (current) drug therapy; Y92.9 Unspecified place or not applicable
CPT/HCPCS: 96361; 96374; 99284; J2310; J7030; 96360

== ENCOUNTER 2019-09-23 22:53 | Emergency (ER) | payer MEDICAID ==
[~2019-09-23] VITALS: Ht 170.2 cm; Wt 94.8 kg
[2019-09-24 03:02] VITALS: BP 142/92
== END 2019-09-24 04:04 | disposition home or self-care (01) ==
LOC: ER 22:53
DX: F41.9 Anxiety disorder, unspecified (principal); F31.9 Bipolar disorder, unspecified; G47.00 Insomnia, unspecified; I11.0 Hypertensive heart disease with heart failure; I50.9 Heart failure, unspecified; E11.9 Type 2 diabetes mellitus without complications; I25.2 Old myocardial infarction; Z76.0 Encounter for issue of repeat prescription

== ENCOUNTER 2019-11-20 20:52 | Emergency (ER) | payer MEDICAID ==
[~2019-11-20] VITALS: Ht 170.2 cm; Wt 90.7 kg
[2019-11-20 21:18] VITALS: BP 138/88
== END 2019-11-21 04:25 | disposition left against medical advice (07) ==
LOC: ER 20:53
DX: R22.40 Localized swelling, mass and lump, unspecified lower limb (principal); Z53.21 Procedure and treatment not carried out due to patient leaving prior to being seen by health care provider
CPT/HCPCS: 71045

== ENCOUNTER 2019-11-22 16:03 | Emergency (ER) | payer MEDICAID ==
[~2019-11-22] VITALS: Ht 170.2 cm; Wt 90.7 kg
[2019-11-22 16:20] VITALS: BP 136/87
== END 2019-11-22 18:08 | disposition home or self-care (01) ==
LOC: ER 16:03
DX: I10 Essential (primary) hypertension (principal); F41.1 Generalized anxiety disorder; Z76.0 Encounter for issue of repeat prescription

== ENCOUNTER 2020-01-11 10:56 | Inpatient (IN) | payer MEDICAID ==
[~2020-01-11] VITALS: Ht 170.2 cm; Wt 80.0 kg
[2020-01-11 13:13] LABS: Basophils # (auto) 0 10 ^3/uL (0-0.2); Basophils % (auto) 0.7 % (0.0-2.0); Eosinophils # (auto) 0.2 10 ^3/uL (0-0.8); Eosinophils % (auto) 4.6 % (0.0-7.0); Hematocrit 36.2 % (41.0-53.0); Hemoglobin 11.7 g/dL (13.5-17.5); Lymphocytes % (auto) 19.5 % (10.0-50.0); Mean Corpuscular Hemoglobin 28.6 pg (28.0-32.0); Mean Corpuscular Hgb Conc. 32.2 g/dL (32.0-36.0); Mean Corpuscular Volume 88.7 fL (80.0-100.0); Monocytes # (auto) 0.4 10 ^3/uL (0-1.3); Monocytes % (auto) 8.9 % (0.0-12.0); Neutrophils # (auto) 3.2 10 ^3/uL (1.6-8.6); Neutrophils % (auto) 66.3 % (37.0-80.0); Nucleated Red Blood Cells % 0.1 %; Platelet Count (auto) 253 10^3/uL (140-450); Red Blood Cells 4.08 10^6/uL (4.5-5.90); Red Cell Distribution Width 14.7 % (11.8-14.3); White Blood Cell 4.9 10^3/uL (4.4-10.8)
[2020-01-11 13:28] LABS: Albumin 2.6 g/dL (3.4-5.0); Anion Gap 3 (5-15); Blood Urea Nitrogen 12 mg/dL (7-18); Calcium 8.3 mg/dL (8.5-10.1); Carbon Dioxide 30 mmol/L (21-32); Chloride 106 mmol/L (98-107); Glucose 123 mg/dL (74-106); Potassium 3.8 mmol/L (3.5-5.1); Sodium 139 mmol/L (136-145)
[2020-01-11 13:33] LABS: Alanine Aminotransferase 24 U/L (16-61); Alkaline Phosphatase 82 U/L (45-117); Aspartate Aminotransferase 24 U/L (15-37); BUN/Creatinine Ratio 16.2; Bilirubin, Total 0.6 mg/dL (0.2-1.0); GFR African American 139 mL/min; GFR Non-African American 115 mL/min; Total Protein 8.1 g/dL (6.4-8.2)
[2020-01-11 14:19] LABS: INR 1.05 (0.9-1.15); Partial Thromboplastin Time 30.3 sec (23.64-32.05)
[2020-01-11] MEDS ORDERED: LORazepam 2MG/ML-1ML VIAL IV ONE (14:45)
[2020-01-11] MEDS ORDERED: cefTRIAXone 1GM/50ML D5W 50 ML IV ONE (16:00)
[2020-01-11] MEDS ORDERED: CLINDAMYCIN 900MG IV 50 ML IV ONE (16:15)
[2020-01-11] MEDS ORDERED: FLUMAZENIL 0.1 MG/ML INJ 10ML MDV IV ONE ×2 (16:15→16:45)
[2020-01-11] MEDS ORDERED: PROMETHAZINE HCL 25 MG/ML 1ML IV PRN (17:00)
[2020-01-11] MEDS ORDERED: DEXTROSE (50%) 50ML SYRG IV PRN (17:00)
[2020-01-11] MEDS: InsuLIN REG 1unit/0.01ml Soln (100units/ml) SC SCH ×2 (17:00→21:22)
[2020-01-11] MEDS ORDERED: levoFLOXacin 500MG 100 ML IV ONE (17:00)
[2020-01-11] MEDS: ACCU-CHEK COMFORT CURVE STRIP VI SCH ×2 (17:00→21:22)
[2020-01-11] MEDS ORDERED: traMADol HCL 50 MG TAB PO PRN (17:00)
[2020-01-11] MEDS ORDERED: TEMAZEPAM 15 MG CAP PO PRN (17:00)
[2020-01-11] MEDS: SODIUM CHLORIDE 0.9% 1,000 ML IV SCH (17:00)
[2020-01-11] MEDS ORDERED: ACETAMINOPHEN 500 MG TAB PO PRN (17:00)
--- NOTE | 2020-01-11 17:20 | NUR ---
MED-SURG ADMIT FROM ER PATIENT BROUGHT TO ROOM 223B. PATIENT HAS A KNIFE ON HIM THAT WAS TAKEN BY SECURITY. PATIENT UNCOOPERATIVE AT THE TIME OF CONTACT. PATIENT STATING THAT HE ONLY CAME HERE TO GET HIM MEDICATIONS REFILLED AND AND HE DOESN'T UNDERSTAND WHY WE WON'T JUST GIVE HIM HIS MEDS. PATIENT'S IV TO RIGHT WRIST CAUSING PAIN, PATIENT REFUSING TO HAVE A NEW IV STARTED, UNABLE TO GIVEN ORDERED IV MEDICATIONS. PATIENT REQUESTING FOOD AND DRINKS AND DEMANDING TO HAVE HIS MEDS REFILLED NOW! PATIENT EDUCATED ON HIS NEED FOR ADMISSION AND GIVEN CRACKERS, JELLO AND JUICE. PATIENT IS CURRENTLY WRITING A LIST OF HIS HOME MEDS THAT HE NEEDS REFILLED BEFORE HE LEAVES. WILL CONTINUE TO MONITOR.
[2020-01-11 17:22] VITALS: BP 126/77
--- NOTE | 2020-01-11 18:00 | NUR ---
PATIENT REFUSING TO HAVE A FULL ASSESSMENT COMPLETED. STATES, " I DON'T KNOW WHY YOU GUYS JUST KEEP BUGGING ME, I JUST CAME HERE FOR MY MEDS".
--- NOTE | 2020-01-11 18:21 | NUR ---
MEDICATION REFILL PATIENT CONTINUES TO ASK FOR HIS MEDICATIONS TO BE REFILLED, WHEN ASKED WHAT MEDS HE NEEDS TO HAVE REFILLED, PATIENT STATES, "ALL OF THEM, LOOK IT UP".
--- NOTE | 2020-01-11 18:40 | NUR ---
IV REMOVAL IV TO RIGHT WRIST REMOVED. PATIENT STATING THAT IT IS HURTING HIM AND HE WANTS IT OUT. CATHETER TIP INTACT, PRESSURE DRESSING APPLIED. PATIENT REFUSING TO HAVE ANOTHER IV PLACED AT THIS TIME.
--- NOTE | 2020-01-11 18:49 | NUR ---
PLACED PAGE TO HOUSING INSPECTOR HOSPITALIST REGARDING HOME MEDICATIONS AND IV REFUSAL.
[2020-01-11] MEDS ORDERED: LACTULOSE 20Gm/30ML SOLN PO PRN (19:00)
[2020-01-11] MEDS ORDERED: ALBUTEROL SULF 2.5 MG/0.5ML(0.5%) NEB SOLN NEB PRN (19:00)
[2020-01-11] MEDS ORDERED: oxyCODONE HCL 5MG TAB PO PRN (19:00)
[2020-01-11] MEDS ORDERED: MORPHINE SULF INJ 2 MG/ML SYRINGE 1ML IV PRN (19:00)
[2020-01-11] MEDS ORDERED: NITROGLYCERIN 0.4 MG SL TAB SL PRN (19:00)
[2020-01-11 20:00] VITALS: BP 133/85
[2020-01-11] MEDS: oxyCODONE HCL 5MG TAB PO PRN (21:20)
[2020-01-11 22:00] VITALS: BP 133/85
[2020-01-11] MEDS: CLINDAMYCIN 600MG IV 50 ML IV SCH (22:00)
[2020-01-11] MEDS ORDERED: clonazePAM 0.5 MG TAB PO SCH (22:00)
[2020-01-11] MEDS: FAMOTIDINE 20 MG TAB PO SCH (22:00)
[2020-01-11] MEDS ORDERED: LABETALOL HCL 200 MG TAB PO SCH (22:00)
[2020-01-11] MEDS: CARVEDILOL 3.125 MG TAB PO SCH (22:01)
[2020-01-11] MEDS: ATORVASTATIN 20 MG TAB PO SCH (22:01)
[2020-01-11] MEDS: ALPRAZolam 0.5 MG TAB PO SCH (23:01)
--- NOTE | 2020-01-12 02:02 | NUR ---
Venipuncture Lab arrived to attempt to draw the patient's blood after a missed attempt earlier in the shift. The patient allowed the venipuncture but fell asleep during the venipuncture. He apparently woke up, startled, and pulled his arm away. He refused to allow another venipuncture. There was only enough blood for the Troponin lab test. Will continue to monitor.
[2020-01-12 02:47] VITALS: BP 133/85
[2020-01-12 05:00] VITALS: BP 136/82
[2020-01-12] MEDS: SODIUM CHLORIDE 0.9% 1,000 ML IV SCH ×3 (05:45→23:00)
[2020-01-12] MEDS: CLINDAMYCIN 600MG IV 50 ML IV SCH ×3 (05:45→22:01)
[2020-01-12] MEDS: oxyCODONE HCL 5MG TAB PO PRN ×2 (06:30→18:18)
[2020-01-12] MEDS: InsuLIN REG 1unit/0.01ml Soln (100units/ml) SC SCH ×2 (07:00→11:30)
[2020-01-12] MEDS: ACCU-CHEK COMFORT CURVE STRIP VI SCH ×2 (07:00→11:57)
[2020-01-12 09:00] VITALS: BP 145/106
--- NOTE | 2020-01-12 09:10 | NUR ---
Respiratory note: PRN MED NEB ASSESSMENT. SPO2 97 % ON ROOM AIR. PT IN NO DISTRESS AT THIS TIME. NO TX INDICATED AT THIS TIME. INFORMED PT TO HAVE RT PAGED IF BECOMES SOB.
[2020-01-12] MEDS ORDERED: ENOXAPARIN SOD 40 MG/0.4 ML SYRINGE SC SCH (10:00)
[2020-01-12] MEDS: FAMOTIDINE 20 MG TAB PO SCH ×2 (10:00→22:03)
[2020-01-12] MEDS: NITROGLYCERIN 0.2MG/HR TOPICAL PATCH TD SCH (10:00)
[2020-01-12] MEDS: ASPirin 81 mg TAB PO SCH (10:41)
[2020-01-12] MEDS: levoFLOXacin 500MG 100 ML IV SCH (10:42)
[2020-01-12] MEDS: LITHIUM CARBONATE 300 MG TAB PO SCH (10:42)
[2020-01-12] MEDS: CARVEDILOL 3.125 MG TAB PO SCH ×2 (10:42→22:02)
[2020-01-12] MEDS: ALPRAZolam 0.5 MG TAB PO SCH ×2 (10:43→22:03)
[2020-01-12] MEDS: FLUoxetine HCL 20 MG CAP PO SCH (10:43)
[2020-01-12] MEDS: LOSARTAN POTASSIUM 50 MG TAB PO SCH (10:43)
[2020-01-12 13:00] VITALS: BP 146/82
--- NOTE | 2020-01-12 14:19 | NUR ---
DOCTOR RAMÍREZ AT BEDSIDE.
--- NOTE | 2020-01-12 14:30 | NUR ---
ORDERS RECEIVED, WILL PLACE AND CARRY OUT.
[2020-01-12 16:50] VITALS: BP 132/80
[2020-01-12] MEDS: FUROSEMIDE 40 MG/4 ML VIAL IV SCH (18:15)
[2020-01-12 22:00] VITALS: BP 110/61
[2020-01-12] MEDS ORDERED: ZOLPIDEM TARTRATE 5 MG TAB PO SCH (22:00)
[2020-01-12] MEDS: ATORVASTATIN 20 MG TAB PO SCH (22:02)
--- NOTE | 2020-01-12 22:08 | NUR ---
D-DIMER PATIENT D-DIMER RESULTS CAME BACK 4.3 AND NOT PRESCRIBED ANY VTE PROPHYLAXIS. PAGED ONCALL FOR [facility], DR HERRING RECEIVED ORDER FOR LOVENOX 40MG SQ DAILY. TORBO.
[2020-01-12] MEDS: ENOXAPARIN SOD 40 MG/0.4 ML SYRINGE SC SCH (23:13)
--- NOTE | 2020-01-13 01:01 | NUR ---
Respiratory note: ASSESSED PT FOR PRN MED NEB AT THIS TIME, PT SLEEPING AT THIS TIME, NO RESP DISTRESS NOTED, NO TX INDICATED, PULSE OX 93% ON RA, HR 76, RR 18, BILATERAL BS CLEAR
[2020-01-13 05:00] VITALS: BP 130/71
[2020-01-13] MEDS: CLINDAMYCIN 600MG IV 50 ML IV SCH (05:43)
[2020-01-13] MEDS: FUROSEMIDE 40 MG/4 ML VIAL IV SCH (05:44)
[2020-01-13] MEDS: oxyCODONE HCL 5MG TAB PO PRN (06:00)
[2020-01-13 08:07] LABS: Potassium 4.1 mmol/L (3.5-5.1)
[2020-01-13 08:20] LABS: BUN/Creatinine Ratio 15.6; Calcium 8.6 mg/dL (8.5-10.1); Magnesium 2.4 mg/dL (1.6-2.6)
--- NOTE | 2020-01-13 08:45 | NUR ---
patient agitated patient became agitated during this RN's morning assessment. Patient stated "stop asking me these questions. Just tell me when I'm discharged and I will figure it out and get a ride here. You don't need to know where I'm going or who is picking me up." This RN attempted to provide the POC, fall precautions and to call for assistance as needed. patient refused education. Patient stated "I'm just in a bad mood. I'm trying not to take it out on you." Patient attempted to grab this RN's hands. This RN requested patient to maintain space and not touch her. Patient became agitated and stated "get someone else in here who can discharge me properly." This RN informed patient that the morning assessment was being performed and he was not being discharged in that moment. Patient walked away with a steady gait and stated "just go away." Respirations even and unlabored, no distress noted.
[2020-01-13] MEDS: SODIUM CHLORIDE 0.9% 1,000 ML IV SCH (09:00)
[2020-01-13] MEDS: ASPirin 81 mg TAB PO SCH (09:42)
[2020-01-13] MEDS: LITHIUM CARBONATE 300 MG TAB PO SCH (09:42)
[2020-01-13] MEDS: levoFLOXacin 500MG 100 ML IV SCH (09:42)
[2020-01-13] MEDS: ALPRAZolam 0.5 MG TAB PO SCH (09:42)
[2020-01-13] MEDS: FLUoxetine HCL 20 MG CAP PO SCH (09:42)
[2020-01-13] MEDS: CARVEDILOL 3.125 MG TAB PO SCH (09:42)
[2020-01-13] MEDS: NITROGLYCERIN 0.2MG/HR TOPICAL PATCH TD SCH (09:42)
[2020-01-13] MEDS: ENOXAPARIN SOD 40 MG/0.4 ML SYRINGE SC SCH (09:42)
[2020-01-13] MEDS: FAMOTIDINE 20 MG TAB PO SCH (09:42)
[2020-01-13] MEDS: LOSARTAN POTASSIUM 50 MG TAB PO SCH (09:42)
--- NOTE | 2020-01-13 09:43 | NUR ---
RE: scheduled medications Patient requesting to be discharged. Medications non-administered.
--- NOTE | 2020-01-13 09:53 | NUR ---
Discharge Discharge education and paperwork provided to the patient per MD order. Patient verbalized understanding. Discharge prescriptions provided to patient. Signature obtained on copy of prescriptions. IV removed with clean technique, catheter intact. Dressing applied. patient tolerated well, no trauma to site. Patient reports having all personal belongings. Patient refused wheelchair. Patient stated "no ma'am. I got it. I snuck out one time to go smoke a cigarette and was able to make it all the way down there." Respirations even and unlabored on room air, no distress noted. Patient has a steady gait. Patient ambulated to hospital lobby accompanied by staff member.
== END 2020-01-13 09:54 | disposition home or self-care (01) | DRG 194 ==
LOC: ER 10:56 → OVERFLOW 10:57 → CENTRAL 17:17
PROVIDERS: ADMIT Internal Medicine; ATTEND Internal Medicine
DX: I11.0 Hypertensive heart disease with heart failure (principal); L03.115 Cellulitis of right lower limb; I50.33 Acute on chronic diastolic (congestive) heart failure; L03.116 Cellulitis of left lower limb; F41.9 Anxiety disorder, unspecified; G89.4 Chronic pain syndrome; F51.04 Psychophysiologic insomnia; E66.9 Obesity, unspecified; R73.9 Hyperglycemia, unspecified; K21.9 Gastro-esophageal reflux disease without esophagitis; F31.9 Bipolar disorder, unspecified; D64.9 Anemia, unspecified; Z82.3 Family history of stroke; Z82.49 Family history of ischemic heart disease and other diseases of the circulatory system; Z91.19 Patient's noncompliance with other medical treatment and regimen; Z86.718 Personal history of other venous thrombosis and embolism; Z68.27 Body mass index [BMI] 27.0-27.9, adult; Z90.49 Acquired absence of other specified parts of digestive tract
CPT/HCPCS: 36415; 71045; 80048; 80053; 82550; 82962; 83036; 83735; 83880; 84443; 84484; 85025; 85379; 85610; 85730; 93005; 93970; 96365; 96375; G0378; J0696; J1956; J3490

== ENCOUNTER 2020-03-14 18:45 | Inpatient (IN) | payer MEDICAID ==
[~2020-03-14] VITALS: Ht 170.2 cm; Wt 83.0 kg
[~2020-03-14 18:45] MED LIST changes: -FLUO20CA19 PO; -FURO1TAB33 PO; -HYDR-4833 PO; -OME20GT PO; -OXY10CRT PO; -PERCOT PO; -POTA10TA51 PO; -ZOLP12.52 PO
[2020-03-14 20:05] LABS: Basophils # (auto) 0.1 10 ^3/uL (0-0.2); Basophils % (auto) 1.3 % (0.0-2.0); Eosinophils # (auto) 0.3 10 ^3/uL (0-0.8); Eosinophils % (auto) 4.3 % (0.0-7.0); Hematocrit 35.4 % (41.0-53.0); Hemoglobin 11.6 g/dL (13.5-17.5); Lymphocytes # (auto) 0.9 10 ^3/uL (0.4-5.4); Lymphocytes % (auto) 12.4 % (10.0-50.0); Mean Corpuscular Hemoglobin 28.5 pg (28.0-32.0); Mean Corpuscular Hgb Conc. 32.6 g/dL (32.0-36.0); Mean Corpuscular Volume 87.2 fL (80.0-100.0); Monocytes # (auto) 0.5 10 ^3/uL (0-1.3); Monocytes % (auto) 7.8 % (0.0-12.0); Neutrophils # (auto) 5.1 10 ^3/uL (1.6-8.6); Neutrophils % (auto) 74.2 % (37.0-80.0); Platelet Count (auto) 355 10^3/uL (140-450); Red Blood Cells 4.06 10^6/uL (4.5-5.90); White Blood Cell 6.8 10^3/uL (4.4-10.8)
[2020-03-14 20:21] LABS: Albumin 2.7 g/dL (3.4-5.0); BUN/Creatinine Ratio 10.2; Calcium 8.4 mg/dL (8.5-10.1); Potassium 3.5 mmol/L (3.5-5.1)
[2020-03-14 20:30] LABS: Total Protein 8.2 g/dL (6.4-8.2)
[2020-03-14] MEDS ORDERED: SODIUM CHLORIDE 0.9% 1,000 ML IVB ONE (21:17)
[2020-03-14] MEDS ORDERED: CLINDAMYCIN 600MG IV 50 ML IV ONE (21:30)
[2020-03-14] MEDS ORDERED: ALPRAZolam 0.5 MG TAB PO ONE (21:30)
[2020-03-14] MEDS ORDERED: cefTRIAXone 1GM/50ML D5W 50 ML IV ONE (21:30)
[2020-03-14] MEDS ORDERED: ONDANSETRON HCL 4 MG/2 ML VIAL IV ONE (21:45)
[2020-03-14] MEDS ORDERED: MORPHINE SULF INJ 2 MG/ML SYRINGE 1ML IV ONE (21:45)
[2020-03-14 22:15] LABS: INR 1.12 (0.9-1.15); Partial Thromboplastin Time 28.8 sec (23.0-31.2)
[2020-03-14] MEDS ORDERED: SODIUM CHLORIDE 0.9% 1,000 ML IV SCH (22:50)
[2020-03-14] MEDS ORDERED: ACETAMINOPHEN 325 MG TAB PO PRN (23:00)
[2020-03-14] MEDS ORDERED: DOCUSATE SOD 100 MG CAP PO PRN (23:00)
[2020-03-14] MEDS ORDERED: ONDANSETRON HCL 4 MG/2 ML VIAL IV PRN (23:00)
[2020-03-14] MEDS ORDERED: DEXTROSE (50%) 50ML SYRG IV PRN (23:00)
[2020-03-14] MEDS ORDERED: MORPHINE SULF INJ 2 MG/ML SYRINGE 1ML IV PRN (23:00)
[2020-03-14] MEDS: HYDROcodone-ACET 5/325MG TAB PO PRN (23:31)
[2020-03-14] MEDS: ACCU-CHEK COMFORT CURVE STRIP VI SCH (23:48)
[2020-03-14] MEDS: InsuLIN REG 1unit/0.01ml Soln (100units/ml) SC SCH (23:52)
[2020-03-14 23:57] LABS: Alcohol, Urine < 3.0 mg/dL (0-10); Amphetamine Screen, Urine POSITIVE (NEGATIVE); Barbiturate Scree,Urine NEGATIVE (NEGATIVE); Benzodiazephine Screen, Urine POSITIVE (NEGATIVE); Cannabinoid Screen, Urine NEGATIVE (NEGATIVE); Cocaine Screen, Urine NEGATIVE (NEGATIVE); Opiate Scree,Urine POSITIVE (NEGATIVE); Phencyclidine Screen, Urine NEGATIVE (NEGATIVE)
[2020-03-15] VITALS (8 sets, daily range): BP systolic 137–161; BP diastolic 84–97
--- NOTE | 2020-03-15 03:45 | NUR ---
Patient admitted to room 295A Patient admitted to med/surg, A&Ox4, respirations even and non-labored with no s/s of distress. Patient was extremely tired and did not want to talk or be bothered. Patient tolerated an assessment and wound care but would not answer very many questions about his personal life or medical background. Discussed the patients POC and the patient verbalized understanding. Bed in lowest locked position with 2 side rails up, call light within reach. Advised patient to call for assistance, bed alarm on. Will continue to monitor.
[2020-03-15] MEDS: ACCU-CHEK COMFORT CURVE STRIP VI SCH ×4 (04:00→16:00)
[2020-03-15] MEDS: InsuLIN REG 1unit/0.01ml Soln (100units/ml) SC SCH ×3 (04:00→12:00)
--- NOTE | 2020-03-15 04:15 | NUR ---
Photos taken/wound cultures/wound care Pictures taken of two, right abdominal abscesses. Irrigated wounds with NS, cultures taken. Applied optifoam. Patient tolerated well.
--- NOTE | 2020-03-15 07:30 | NUR ---
Opening Shift Note Assumed patient care from La Nena GLASGOW RN. Patient currently laying on right side. Patient refusing skin and wound assessment at this time, patient educated on need to assess sites, verbalized understanding but continued to refuse. Safety precautions in place, no signs of distress at this time, will continue to monitor. Addendum: 03/15/20 at 1423 by MARCOS MOISE RN RN Patient is AOx4.
--- NOTE | 2020-03-15 09:00 | NUR ---
Refused Labs at this time Per cnc technician, patient refusing labs at this time, cnc technician will attempt at later time.
--- NOTE | 2020-03-15 09:42 | NUR ---
WOUND CARE NOTE: Wound care in to see patient per wound care request regarding "Two Right side abdominal abscesses" wounds that are noted present on admission. Bedside nurse took photograph of patient's wounds upon admission for reference. Patient is 59 years old male admitted for Cellulitis. Per reports, patient has history of injecting heroin into muscles. Patient is resting in bed in Rm. 295A. Patient is resting on his Rt. side, eyes closed, respond and answer questions. He's self turning and repositioning. His Valente score is 18. Attempted to see patient for skin/wound assessment with patient's nurse, BISHNU Solano. Patient is answering while eyes closed while laying on his side. Patient is refusing wound care and wont let us see his wounds. Patient states that he's leaving as soon a she get his strength. He added that "they cut me on my pain medication". BISHNU Solano explained to patient that she just medicated patient for pain. Patient states "It doesn't work!". Bedside nurse educated patient on pain management. Wound care education also provided, patient still refused skin/wound assessment. Patient would benefit in Daily/PRN cleaning of abdominal wound with application of Thera honey gel to help in autolytic debridement. RECOMMENDATION: Nursing to continue with Daily/PRN dressing change abdominal wounds per MD order, surgical consult for possible wound debridement, continue monitoring by wound care while patient is hospitalized.
--- NOTE | 2020-03-15 09:42 | NUR ---
Patient refused wound care. Wound care education provided, still refused. Addendum: 03/15/20 at 1404 by Nakia Jvaed RN Amended: Links added.
--- NOTE | 2020-03-15 09:43 | NUR ---
Wound Care at bedside Nakia, commodities requirements analyst at bedside attempting to provide wound care to patient. Patient refusing wound care at this time, stating "No. I am comfortable, as soon as I get my strength I am leaving." Patient educated on need for wound care to abscesses at this time, verbalized understanding and continues to refuse. Wound care unable to assess wound or provide wound care as patient continued to refuse. Safety precautions in place, call light within reach, will continue to monitor.
--- NOTE | 2020-03-15 10:31 | NUR ---
Patient Rounds Patient currently laying on right side. Respirations even and unlabored, no signs of distress at this time. Safety precautions in place, call light within reach, will continue to monitor.
[2020-03-15] MEDS: HYDROcodone-ACET 5/325MG TAB PO PRN (10:46)
--- NOTE | 2020-03-15 11:38 | NUR ---
Patient Rounds Patient states pain medication is "not working, I need something stronger." Will notify MD. Respirations even and unlabored, patient laying on right side. Safety precautions in place. Will continue to monitor.
--- NOTE | 2020-03-15 11:50 | NUR ---
MD Called Received return call from Dr. Jeremy MD aware of patient status. New orders received, will continue to monitor.
[2020-03-15] MEDS: SODIUM CHLORIDE 0.9% 1,000 ML IV SCH ×2 (12:00→22:00)
[2020-03-15] MEDS ORDERED: HYDROcodone-ACET 5/325MG TAB PO ONE (12:00)
--- NOTE | 2020-03-15 12:20 | NUR ---
MD Called Dr. Leyva called, updated on patient status and plan of care. Per MD, wait for CT results. No new orders at this time.
--- NOTE | 2020-03-15 12:22 | NUR ---
Assessed left hip Abscess Patient educated on need to assess site of abscess. Patient states abscess on left hip is causing pain and will only allow assessment at that site, shouting "only my left hip!" Left hip abscess closed. Site is hot, reddened and dry, no oozing or drainage noted. Patient also noted to have urinated on self, patient is currently has foul order but is refusing to be cleaned at this time. Patient educated by staff repeatedly, continues to refuse. Safety precautions in place, call light within reach, will continue to monitor.
[2020-03-15] MEDS ORDERED: IOHEXOL 300 MG/ML 100ML BOTTLE IJ ONE (12:27)
--- NOTE | 2020-03-15 12:30 | NUR ---
CT Received call from stress test technician regarding orders for CT. Patient needs new IV above hand/below elbow for contrast. Will attempt to obtain new IV.
--- NOTE | 2020-03-15 12:34 | NUR ---
IV Removed/Refusing New IV Attempted to place second IV for CT contrast when noted that Patient removed IV when turning self. Refusing new IV at this time. Patient educated on need for IV for medications and CT contrast. Patient continues to refuse states "Leave me alone, I don't even want you talking to me right now." JOSE MARTIN Menendez also at bedside as witness. Patient also offered clean linens and assistance with cleaning self. Patient continues to refuse and states "I just want to be left alone." Addendum: 03/15/20 at 1422 by MARCOS MOISE RN RN Patient refuses to allow IV site assessment and pressure dressing at this time.
--- NOTE | 2020-03-15 12:40 | NUR ---
Radiology feed research technician notified of patient refusal for IV and CT at this time.
--- NOTE | 2020-03-15 12:47 | NUR ---
Rio VALERIO Paged Dr. Luna regarding patient blood pressure.
[2020-03-15] MEDS ORDERED: CLINDAMYCIN 600MG IV 50 ML IV SCH (14:00)
--- NOTE | 2020-03-15 14:09 | NUR ---
Nutrition Assessment Notes Please refer to link for full assessment notes. Est Energy needs: 9529-0083 kcals (17-20 kcal/kgBW) Est Protein needs: 70-87 gms/day (0.8-1.0 gm/kgBW) Will continue to monitor and reassess prn. Addendum: 03/15/20 at [address] Amended: Links added.
--- NOTE | 2020-03-15 14:10 | NUR ---
Refused Blood Draw and BP Meds Patient currently refusing blood draw and blood pressure medication, patient AOx4. Explained to patient need for blood draws and blood pressure medication, explained to patient that blood pressure is high and requires medication for management, patient continues refusing blood draw and blood pressure at this time. Electronic Bench Technician, Duglas, at bedside as witness. Patient also continues to refuse linen change. Linens are wet with urine and blood from previous IV site. Patient continues to refuse linen change and IV site assessment. Patient states "I want you to leave me alone."
[2020-03-15] MEDS ORDERED: amLODIPine BESYLATE 5 MG TAB PO ONE (14:15)
--- NOTE | 2020-03-15 14:16 | NUR ---
Refused BP medications Patient refusing blood pressure medications at this time. Explained risks of not managing elevated blood pressure, including stroke/disability/. Patient continues to refuse blood pressure medications shouting "I just want to be left alone."
--- NOTE | 2020-03-15 14:45 | NUR ---
Patient Rounds Patient requesting new blankets. New blankets provided. Educated patient on need to change fitted sheet due to it being wet too. Patient refused shouting "no." Patient continues to refuse IV at this time.
--- NOTE | 2020-03-15 15:30 | NUR ---
Abdominal Abscess Noted abdominal abscess/lesions while performing linen change. Lesions currently have foul odor and have white/green drainage. Asked patient if I could further assess, patient states "just leave me alone."
--- NOTE | 2020-03-15 15:30 | NUR ---
Linen Change Changed linens. Patient refuses to remove wet clothes, gown offered. Noted that patients hands are moist and prune like. Patient refuses new gown. Continues to demand pain medications, informed medications not due and cannot give Morphine due to lack of Iv access. Inspector Salvage, Garfield and Field Kiln Burner, Jovita also informed of patient refusing treatment.
--- NOTE | 2020-03-15 16:40 | NUR ---
IV Attempt plumber's assistant Rhonda and Garfield attempted to start IV. Patient became combative and threw tourniquet at chargemaster specialist Chris.
[2020-03-15] MEDS ORDERED: HYDROmorphone HCL 2 MG TAB PO ONE (17:45)
[2020-03-15] MEDS ORDERED: VANCOMYCIN 1GM/250ML 250 ML IV ONE (17:45)
[2020-03-15] MEDS ORDERED: MORPHINE SULF INJ 2 MG/ML SYRINGE 1ML IV PRN (17:45)
[2020-03-15] MEDS ORDERED: hydrALAZINE HCL 20 MG/ML VL IV PRN (17:45)
[2020-03-15] MEDS ORDERED: VANCOMYCIN PER PHARMACY 0 MG IV SCH (17:45)
[2020-03-15] MEDS: PIPERACILLIN-TAZOB 3.375GM 100 ML IV SCH (18:00)
[2020-03-15] MEDS ORDERED: LORazepam 2MG/ML-1ML VIAL IM ONE (18:00)
--- NOTE | 2020-03-15 18:06 | NUR ---
Patient refused Ultrasound
--- NOTE | 2020-03-15 18:10 | NUR ---
at Bedside Dr. Luna at bedside. MD aware of patient refusing all treatments, including IV at this time. Patient allows MD to attempt IV. IV insertion attempted but not successful at this time. Patient states "stop, I need a break." Need for IV access for antibiotics, diagnostic tests, and additional treatments explained to patient. MD informed patient of risks of continuing to refuse treatments including possibility of developing sepsis and . Patient verbalized understanding but continues to refuse and states "leave me alone." Patient is AOx4 and answers questions appropriately, continues to refuse treatments at this time. Safety precautions in place, call light within reach, will continue to monitor.
[2020-03-15] MEDS ORDERED: CLINDAMYCIN HCL 150 MG CAP PO ONE (18:15)
--- NOTE | 2020-03-15 18:55 | NUR ---
REBECCA Received call from Nakia in microbiology. Patient positive for MRSA in nares, hemodialysis charge nurse aware.
--- NOTE | 2020-03-15 19:00 | NUR ---
Patient refusing IV and quality assurance monitor final at this time. Addendum: 03/15/20 at 2004 by MARCOS MOISE RN RN Patient stated, "I'm an addict, I need something stronger for pain."
--- NOTE | 2020-03-15 19:15 | NUR ---
Refused CT Patient continues to refuse CT at this time.
--- NOTE | 2020-03-15 19:18 | NUR ---
assumed care of pt, introduced self and was told :leave me alone." pt encouraged to call if he needs anything, otherwise he is refusing all tests, cares, and IV's.
--- NOTE | 2020-03-15 19:30 | NUR ---
Closing Note Gave report to PEE Hinesgail. Patient currently laying supine in bed refusing care states "just leave me alone."
--- NOTE | 2020-03-15 19:40 | NUR ---
Lab Draws Patient refusing lab draws at this time. Echo Technician, Duglas witnessed.
--- NOTE | 2020-03-15 20:23 | NUR ---
pt has refused CT and will not answer bedside phone when sister Myesha calls.
[2020-03-15] MEDS: CLINDAMYCIN HCL 150 MG CAP PO SCH (21:27)
[2020-03-15] MEDS: HYDROcodone-ACET 10/325MG TAB PO PRN (21:28)
--- NOTE | 2020-03-15 21:30 | NUR ---
pt was cooperative with v/s because he wanted pain meds. Pt given norco pain med per order but pt requested dilaudid po after taking med and yelled at this telegraphic typewriter operator chief when told the order was discontinued. Pt the educated that he is to be NPO or not have any food or drink after midnight because he is schedueled for a PICC line to be placed. Pt did not verbalize understanding.
--- NOTE | 2020-03-15 23:09 | NUR ---
pt requesting pain meds, informed that he has none due until approx. 330. Pt did not verbalized understanding.
[2020-03-16] MEDS: HYDROcodone-ACET 10/325MG TAB PO PRN (03:28)
[2020-03-16] MEDS ORDERED: VANCOMYCIN 1GM/250ML 250 ML IV SCH (05:00)
--- NOTE | 2020-03-16 05:03 | NUR ---
pt has been NPO since [facility]
[2020-03-16] MEDS: PIPERACILLIN-TAZOB 3.375GM 100 ML IV SCH ×2 (05:48)
[2020-03-16] MEDS: CLINDAMYCIN HCL 150 MG CAP PO SCH (06:00)
--- NOTE | 2020-03-16 06:07 | NUR ---
pt refused lab draw, lab will reschedule draw for 1230 after possible PICC line placement. Will inform day RN
[2020-03-16] MEDS: SODIUM CHLORIDE 0.9% 1,000 ML IV SCH (08:35)
[2020-03-16] MEDS ORDERED: amLODIPine BESYLATE 5 MG TAB PO SCH (10:00)
--- NOTE | 2020-03-16 10:19 | NUR ---
[facility] PATIENT HAD NOT BEEN SEEN FOR 30 MINUTES ACCORDING TO BIODIES[employer] ENGINE SPECIALIST. THIS NURSE WAITED ANOTHER 15-20 MINUTES AND THERE WAS STILL NO SIGN OF HIM. CONTACTED SECURITY AND THEY DID NOT SEE THE PATIENT ANYWHERE. CLOTHING AND A BOOK REMAINED IN PATIENT'S ROOM. THIS NURSE COLLECTED THE BELONGINGS AFTER THE PATIENT HAD NOT BEEN SEEN FOR OVER AN HOUR AND PLACED THEM IN THE SOILED UTILITY ROOM IN A BAG WITH PATIENT LABEL ON IT. PATIENT HAD REFUSED TELEMETRY AND ACCORDING TO THE TELE MONITOR DID NOT HAVE A BOX. PATIENT ALSO DID NOT HAVE AN IV DUE TO REFUSING IT. HE HAD AN ORDER TO GET A PICC LINE PLACED TODAY. IT HAD NOT YET BEEN PLACED.
--- NOTE | 2020-03-16 11:11 | NUR ---
Assessment Patient left AMA prior to assessment.
== END 2020-03-16 10:00 | disposition left against medical advice (07) | DRG 383 ==
LOC: ER 18:45 → OVERFLOW 18:46 → WEST WING 03-15 03:36
PROVIDERS: ADMIT Hospitalist; ATTEND Hospitalist
DX: L03.311 Cellulitis of abdominal wall (principal); L02.211 Cutaneous abscess of abdominal wall; L02.416 Cutaneous abscess of left lower limb; F11.20 Opioid dependence, uncomplicated; F17.210 Nicotine dependence, cigarettes, uncomplicated; F41.9 Anxiety disorder, unspecified; I10 Essential (primary) hypertension; F32.9 Major depressive disorder, single episode, unspecified; K21.9 Gastro-esophageal reflux disease without esophagitis; R26.2 Difficulty in walking, not elsewhere classified; S31.105A Unspecified open wound of abdominal wall, periumbilic region without penetration into peritoneal cavity, initial encounter; Z59.0 Homelessness; Z90.49 Acquired absence of other specified parts of digestive tract; Z53.29 Procedure and treatment not carried out because of patient's decision for other reasons
CPT/HCPCS: 36415; 71045; 80053; 80307; 82962; 83605; 83735; 83880; 85025; 85610; 85730; 87040; 87077; 87081; 87186; 87205; G0378; J0696; J2405; J3490

== ENCOUNTER 2020-03-16 22:03 | Emergency (ER) | payer MEDICAID ==
[~2020-03-16] VITALS: Ht 172.7 cm; Wt 90.7 kg
[2020-03-17 01:20] LABS: Basophils # (auto) 0.1 10 ^3/uL (0-0.2); Eosinophils # (auto) 0 10 ^3/uL (0-0.8); Eosinophils % (auto) 0.2 % (0.0-7.0); Hematocrit 44.8 % (41.0-53.0); Hemoglobin 14.2 g/dL (13.5-17.5); Lymphocytes # (auto) 1.9 10 ^3/uL (0.4-5.4); Lymphocytes % (auto) 14.7 % (10.0-50.0); Mean Corpuscular Hemoglobin 28.6 pg (28.0-32.0); Mean Corpuscular Hgb Conc. 31.7 g/dL (32.0-36.0); Mean Corpuscular Volume 90.3 fL (80.0-100.0); Monocytes % (auto) 7.9 % (0.0-12.0); Neutrophils # (auto) 9.7 10 ^3/uL (1.6-8.6); Neutrophils % (auto) 76.2 % (37.0-80.0); Nucleated Red Blood Cells % 0.1 %; Platelet Count (auto) 332 10^3/uL (140-450); Red Blood Cells 4.96 10^6/uL (4.5-5.90); White Blood Cell 12.7 10^3/uL (4.4-10.8)
[2020-03-17 01:37] LABS: Albumin 2.8 g/dL (3.4-5.0); BUN/Creatinine Ratio 7.1; Calcium 8.5 mg/dL (8.5-10.1); Potassium 3.5 mmol/L (3.5-5.1)
[2020-03-17 01:40] LABS: Bilirubin, Total 0.8 mg/dL (0.2-1.0); Total Protein 8.8 g/dL (6.4-8.2)
[2020-03-17 06:00] VITALS: BP 117/67
== END 2020-03-17 06:48 | disposition left against medical advice (07) ==
LOC: EDBD 22:03 → ER 22:03
DX: L02.211 Cutaneous abscess of abdominal wall (principal); K21.9 Gastro-esophageal reflux disease without esophagitis; I10 Essential (primary) hypertension; F11.20 Opioid dependence, uncomplicated; F17.210 Nicotine dependence, cigarettes, uncomplicated; Z90.49 Acquired absence of other specified parts of digestive tract; Z59.0 Homelessness; Z87.442 Personal history of urinary calculi
CPT/HCPCS: 36415; 71250; 74176; 80053; 85025

== ENCOUNTER 2020-04-02 23:48 | Emergency (ER) | payer MEDICAID ==
[~2020-04-02] VITALS: Ht 172.7 cm; Wt 81.6 kg
[2020-04-02 23:54] VITALS: BP 163/94
== END 2020-04-03 00:38 | disposition left against medical advice (07) ==
LOC: EDBD 23:48 → ER 23:53
DX: R06.02 Shortness of breath (principal); Z53.21 Procedure and treatment not carried out due to patient leaving prior to being seen by health care provider

== ENCOUNTER 2024-06-15 16:48 | Emergency (ER) | payer MEDICARE, MEDICAID ==
[~2024-06-15] VITALS: Ht 170.2 cm; Wt 87.0 kg
[~2024-06-15 16:48] MED LIST changes: -ALPR1TAB2 PO; +CLIN1CAP70 PO; -CLON1TAB10 PO; -LABE200T18 PO; +LABE200T33 PO; +LEVO500T31 PO; -LOSA-39 PO; +LOSA-535 PO; -ZOLP10TA PO
[2024-06-15 16:54] VITALS: BP 159/101; RESP 18; TEMP 99.9; O2SAT 96
[2024-06-15 16:56] VITALS: PULSE 91
--- NOTE | 2024-06-15 17:02 | ECG ---
[facility] Test Date: 2024-06-15 Test Time: 16:56:45 Pat Name: KEVON LIN Department: er Room: Gender: M Crust Sorter: gp : 1960 Requested By: AMBER SALAS Order Number: [id number] Reading MD: Measurements Intervals [place] Rate: 91 P: 34 WA: 159 QRS: 35 QRSD: 100 T: 10 QT: 354 QTc: 436 Interpretive Statements Sinus rhythm Baseline wander in lead(s) II,III,aVF Please click the below link to view image of tracing.
--- NOTE | 2024-06-15 17:59 | ED.PDOC ---
GI ASSESSMENT HPI Comments 64 y.o male with PMH of HTN and bipolar disorder, presents to the ED for a chief complaint of abdominal pain x 4 days. Patient reports having an umbilical hernia that has doubled in size" over the past week, creating increased pain. Patient reports nausea, vomiting and chronic diarrhea. He denies any fever or urinary symptoms. He states prior to the past week he was not able to reduce the hernia, however it was not painful. Chief Complaint: Abdominal Pain Time Seen by MD: 17:46 Primary Care Provider: Unknown Reviewed Notes: Nurses Notes, Medications, Allergies Allergies: Coded Allergies: NO KNOWN ALLERGIES (Unverified , 04/03/20) Home Meds Active Scripts Clindamycin Hcl (Clindamycin Hcl) 300 Mg Cap, 600 MG PO Q8HR, #42 CAP Prov:JOSSIE DO MD 01/25/21 Levofloxacin (Levaquin) 500 Mg Tab, 500 MG PO DAILY, #6 TAB Prov:JOSSIE DO MD 01/25/21 Labetalol Hcl (Labetalol Hcl) 200 Mg Tab, 1 TAB PO BID, #60 TAB Prov:NAVIN ATKINS MD 07/30/19 Losartan Potassium (Losartan Potassium) 100 Mg Tab, 100 MG PO DAILY, #30 MG Prov:NAVIN ATKINS MD 07/30/19 Fluoxetine HCl (Pmdd) (Fluoxetine HCl) 20 Mg Tab, 40 MG PO DAILY, #30 TAB Prov:NAVIN ATKINS MD 07/30/19 Reported Medications [place] Carbonate ([place] Carbonate) 300 Mg Cap, 600 MG PO DAILY for 30 Days, MG 07/29/19 Oxycodone Hcl (OxyCONTIN ER Tablet) 20 Mg Tb, 30 MG PO Q6HP PRN for PAIN SCALE 1 THRU 6, TAB 07/29/19 Omeprazole (PRILOSEC) 20 Mg Cap, 20 MG PO DAILY for 30 Days, MG 06/04/17 Information Source: Patient Mode of Arrival: Ambulatory Timing: Days Duration: Since onset Quality: Sharp Vomitus: Soft Stool: Normal Recent: None Recent Hx of: None Pain Location: Periumbilical Modifying Factors: Nothing Associated sign and symptoms: Nausea, Vomiting, Abdominal Pain Past Medical History PAST MEDICAL HISTORY: Anxiety, Depression, GERD, HTN Surgical History: Cholecystectomy Family History Family History: Unobtainable Social History Smoker: Cigarettes, Less Than 1 Pack/Day Alcohol: Rarely Drugs: Heroin, Marijuana, Methamphetamine Lives In: Homeless Constitutional: denies: chills, diaphoresis, fatigue, fever, malaise, sweats, weakness, others EENTM: denies: blurred vision, double vision, ear bleeding, ear discharge, ear drainage, ear pain, ear ringing, eye pain, eye redness, hearing loss, mouth pain, mouth swelling, nasal discharge, nose bleeding, nose congestion, nose pain, photophobia, tearing, throat pain, throat swelling, voice changes, others Respiratory: denies: cough, hemoptysis, orthopnea, SOB at rest, shortness of breath, SOB with excertion, stridor, wheezing, others Cardiovascular: denies: chest pain, dizzy spells, diaphoresis, Dyspnea on exertion, edema, irregular heart beat, left arm pain, lightheadedness, palpitations, PND, syncope, others Gastrointestinal: reports: abdominal pain, nausea, vomiting; denies: abdomen distended, blood streaked bowels, constipated, diarrhea, dysphagia, difficulty swallowing, hematemesis, melena, poor appetite, poor fluid intake, rectal b leeding, rectal pain, others Genitourinary: denies: burning, dysuria, flank pain, frequency, hematuria, in continence, penile discharge, penile sore, pain, testicle pain, testicle swelling, urgency, others Neurological: denies: dizziness, fainting, headache, left sided numbness, left sided weakness, numbness, paresthesia, pre-existing deficit, right sided numbness, right sided weakness, seizure, speech problems, tingling, tremors, weakness, others Musculoskeletal: denies: back pain, gout, joint pain, joint swelling, muscle pain, muscle stiffness, neck pain, others Integumetry: denies: bruises, change in color, change in hair/nails, dryness, laceration, lesions, lumps, rash, wounds, others Allergic/Immunocompromised: denies: Difficulty Healing, Frequent Infections, Hives, Itching, others Hematologic/Lymphatic: denies: anemia, blood clots, easy bleeding, easy bruising, swollen glands, others Endocrine: denies: excessive hunger, excessive sweating, excessive thirst, excessive urination, flushing, intolerance to cold, intolerance to heat, unexplained weight gain, unexplained weight loss, others Psychiatric: denies: anxiety, bipolar disorder, depression, hopeless, panic disorder, schizophrenia, sleepless, suicidal, others All Other Systems: Reviewed and Negative Physical Exam General Appearance: No Apparent Distress HEENT: Normal ENT Inspection Neck: Full Range of Motion, Normal Inspection Respiratory: No Accessory Muscle Use, No Respiratory Distress, Normal Breath Sounds Cardiovascular: No Edema, No JVD, Regular Rate/Rhythm Breast Exam: Deferred Gastrointestinal: No Pulsatile Mass, Soft, Tenderness (Tender approximate 4 x 4 cm umbilical hernia, not reducible) Genitalia: Deferred Pelvic: Deferred Rectal: Deferred Extremities: Normal inspection, Normal range of motion, Non-tender, No pedal edema Neurologic: Alert, No Motor Deficits, Normal Affect, Normal Mood, No Sensory Deficits Cerebellar Function: NOT DONE Reflexes: NOT DONE Skin: Dry, Normal Color, Warm Lymphatic: NOT DONE Was a procedure done? Was a procedure done?: No GI differential Dx Differential Diagnosis: Bowel Obstruction, Constipation, Diverticular disease, Gastroenteritis, Hernia, Inflammatory BD, UTI, Dehydration, Food Poisoning, Bacterial, Parasitic, Viral, Hypovolemia, Impaction, Other (Incarcerated or strangulated hernia, among others) X-Ray, Labs, Meds, VS Vital Signs Date Time Temp Pulse Resp B/P (MAP) Pulse Ox O2 Delivery O2 Flow Rate FiO2 06/15/24 16:56 91 06/15/24 16:54 99.9 95 18 159/101 (120) 96 06/15/24 16:54 99.9 95 18 159/101 (120) 96 99.9 Lab Test 06/15/24 19:01 Range/Units White Blood Count 5.8 4.4-10.8 10^3/uL Red Blood Count 4.19 L 4.5-5.90 10^6/uL Hemoglobin 13.1 L 13.5-17.5 g/dL Hematocrit 38.6 L 41.0-53.0 % Mean Corpuscular Volume 92.1 80.0-100.0 fL Mean Corpuscular Hemoglobin 31.2 28.0-32.0 pg Mean Corpuscular Hemoglobin Concent 33.9 32.0-36.0 g/dL Red Cell Distribution Width 13.9 11.8-14.3 % Platelet Count 228 140-450 10^3/uL Mean Platelet Volume 8.5 6.9-10.8 fL Neutrophils (%) (Auto) 57.0 37.0-80.0 % Lymphocytes (%) (Auto) 29.5 10.0-50.0 % Monocytes (%) (Auto) 9.0 0.0-12.0 % Eosinophils (%) (Auto) 2.2 0.0-7.0 % Basophils (%) (Auto) 2.3 H 0.0-2.0 % Neutrophils # (Auto) 3.3 1.6-8.6 10 ^3/uL Lymphocytes # (Auto) 1.7 0.4-5.4 10 ^3/uL Monocytes # (Auto) 0.5 0-1.3 10 ^3/uL Eosinophils # (Auto) 0.1 0-0.8 10 ^3/uL Basophils # (Auto) 0.1 0-0.2 10 ^3/uL Nucleated Red Blood Cells 0.1 % Sodium Level 142 136-145 mmol/L Potassium Level 4.1 3.5-5.1 mmol/L Chloride Level 109 H 98-107 mmol/L Carbon Dioxide Level 26 20-31 mmol/L Anion Gap 7 5-15 Blood Urea Nitrogen 11 9-23 mg/dL Creatinine 0.72 0.700-1.30 mg/dL Glomerular Filtration Rate Calc 101 >90 mL/min BUN/Creatinine Ratio 15.3 10.0-20.0 Serum Glucose 93 74-106 mg/dL Lactic Acid Level 0.8 0.4-2.0 mmol/L Calcium Level 10.2 8.7-10.4 mg/dL PROCEDURE(s): ABPL - CT AB PEL WO CON-NO ORAL OR IV REASON: enlarging painful umb hernia ORDER NUMBER(s): [id number], ACCESSION NUMBER(s): [id number] Exam: CT CT AB PEL WO CON-NO ORAL OR IV History: enlarging painful umb hernia Comparison Study: None available at time of dictation. TECHNIQUE: Multidetector CT of the abdomen was performed from lung bases to pubic symphysis. Imaging was performed without IV contrast. Axial, coronal and sagittal multiplanar reformats were obtained from the axial data set by the technologist. Radiation Dose Information: CT Dose: CTDI volume is 12.73 mGy. Dose-length product is 671.62 mGy*cm FINDINGS: Evaluation of solid organs is limited due to lack of intravenous contrast use. Findings: Lung Bases: No acute or significant lung base finding. Normal heart size. No pleural or pericardial effusion. Liver: The liver is normal in size. No focal lesions. Gallbladder and Biliary Tree: Unremarkable Spleen: Unremarkable Pancreas: The pancreas is grossly normal in appearance. Adrenal Glands: Unremarkable Kidneys: Kidneys are grossly normal without calculi or hydronephrosis. Bladder: Grossly unremarkable for degree of distention. Bowel: The stomach is grossly normal in appearance. Small bowel and colon are normal in caliber and distribution. The appendix is not visualized; however, no secondary findings of acute appendicitis identified. Ascites: Absent Lymphadenopathy: No mesenteric, retroperitoneal or periportal lymphadenopathy. Abdominal Wall and Mesentery: There is a 5.3 cm fat containing umbilical hernia. The defect in the anterior abdominal wall is 2.5 cm. In the previous CT abdomen pelvis of 03 16 2020 the umbilical hernial measured less than a cm. There is no findings to suggest bowel obstruction. Vasculature: The visualized abdominal aorta is normal in size and caliber. Evaluation of abdominal and pelvic vessels is limited due to lack of intravenous contrast. Pelvic Organs: Unremarkable Musculoskeletal: No aggressive focal bony lesions, acute fractures or dislocation. Soft tissues: Unremarkable IMPRESSION: 1. 5.3 cm fat containing umbilical hernia with defect in the anterior abdominal wall of 2.5 cm. This appears new when compared with the previous CT scan of 03/16/2020. 2. There are no findings to suggest bowel obstruction. 3. Gallbladder has been surgically removed. Radiation optimization: All CT scans at this facility use at least one of these dose optimization techniques: automated exposure control mA and/or kV adjustment per patient size (includes targeted exams where dose is matched to clinical indication) or iterative reconstruction. X-Ray, Labs, Meds, VS Comment 64-year-old male with a history of hypertension complaining of progressively painful and enlarging umbilical hernia over the past week, associated with nausea and vomiting Vitals remarkable for temperature 99.9, BP 151/101 Exam remarkable for a tender, nonreducible approximate 4 x [address] abdomen and pelvis IMPRESSION: 1. 5.3 cm fat containing umbilical hernia with defect in the anterior abdominal wall of 2.5 cm. This appears new when compared with the previous CT scan of 03/16/2020. 2. There are no findings to suggest bowel obstruction. 3. Gallbladder has been surgically removed. CBC, basic metabolic panel Lactate UA pending The following treatment was ordered for the patient: 1 L 0.9 normal saline IV bolus, morphine 4 mg IV, Zofran 4 mg IV Plan was to admit the patient for pain control, IV hydration and surgical evaluation, however the patient eloped from the ED prior to medication administration and evaluation by the hospitalist. Time of 1ST Reevaluation: 17:59 Reevaluation 1ST: Unchanged Time of 2ND Reevaluation: 19:42 Reevaluation 2ND: Unchanged Patient Education/Counseling: Diagnosis, Treatment, Prognosis Family Education/Counseling: No Family Present Departure 1 Departure Time of Disposition: 19:42 Impression: Primary Impression: Umbilical hernia Qualified Codes: K42.9 - Umbilical hernia without obstruction or gangrene Additional Impression: Intractable abdominal pain Disposition: 07 LEFT AWOL/ELOPED Condition: Fair Discharged With: Self Critical Care Note Critical Care Time?: No Stability Stability form required: No I personally scribed for AMBER HAWKINS MD ([facility]) on 06/15/24 at 17:59. Electronically submitted by Socorro Dumont ([facility]). I personally scribed for AMBER HAWKINS MD ([facility]) on 06/15/24 at 18:58. Electronically submitted by Socorro Dumont ([facility]). AMBER HAWKINS MD Jun 15, 2024 17:59
[2024-06-15] MEDS ORDERED: ONDANSETRON HCL 4 MG/2 ML VIAL IV ONE (18:30)
[2024-06-15] MEDS ORDERED: MORPHINE SULFATE 4 MG/ML SYR/VIAL IV ONE (18:30)
--- NOTE | 2024-06-15 19:05 | DVH ---
Exam: CT CT AB PEL WO CON-NO ORAL OR IV History: enlarging painful umb hernia Comparison Study: None available at time of dictation. TECHNIQUE: Multidetector CT of the abdomen was performed from lung bases to pubic symphysis. Imaging was performed without IV contrast. Axial, coronal and sagittal multiplanar reformats were obtained fr om the axial data set by the technologist. Radiation Dose Information: CT Dose: CTDI volume is 12.73 mGy. Dose-length product is 671.62 mGy*cm FINDINGS: Evaluation of solid organs is limited due to lack of intravenous contrast use. Findings: Lung Bases: No acute or significant lung base finding. Normal heart size. No pleural or pericardial effusion. Liver: The liver is normal in size. No focal lesions. Gallbladder and Biliary Tree: Unremarkable Spleen: Unremarkable Pancreas: The pancreas is grossly normal in appearance. Adrenal Glands: Unremarkable Kidneys: Kidneys are grossly normal without calculi or hydronephrosis. Bladder: Grossly unremarkable for degree of distention. Bowel: The stomach is grossly normal in appearance. Small bowel and colon are normal in caliber and d istribution. The appendix is not visualized; however, no secondary findings of acute appendicitis id entified. Ascites: Absent Lymphadenopathy: No mesenteric, retroperitoneal or periportal lymphadenopathy. Abdominal Wall and Mesentery: There is a 5.3 cm fat containing umbilical hernia. The defect in the an terior abdominal wall is 2.5 cm. In the previous CT abdomen pelvis of 03 16 2020 the umbilical hernial measured less than a cm. There is no findings to suggest bowel obstruction. Vasculature: The visualized abdominal aorta is normal in size and caliber. Evaluation of abdominal a nd pelvic vessels is limited due to lack of intravenous contrast. Pelvic Organs: Unremarkable Musculoskeletal: No aggressive focal bony lesions, acute fractures or dislocation. Soft tissues: Unremarkable IMPRESSION: 1. 5.3 cm fat containing umbilical hernia with defect in the anterior abdominal wall of 2.5 cm. This appears new when compared with the previous CT scan of 03/16/2020. 2. There are no findings to suggest bowel obstruction. 3. Gallbladder has been surgically removed. Radiation optimization: All CT scans at this facility use at least one of these dose optimization te chniques: automated exposure control mA and/or kV adjustment per patient size (includes targeted exa ms where dose is matched to clinical indication) or iterative reconstruction.
[2024-06-15 19:14] LABS: Basophils # (auto) 0.1 10 ^3/uL (0-0.2); Basophils % (auto) 2.3 % (0.0-2.0); Eosinophils # (auto) 0.1 10 ^3/uL (0-0.8); Eosinophils % (auto) 2.2 % (0.0-7.0); Hematocrit 38.6 % (41.0-53.0); Hemoglobin 13.1 g/dL (13.5-17.5); Lymphocytes # (auto) 1.7 10 ^3/uL (0.4-5.4); Lymphocytes % (auto) 29.5 % (10.0-50.0); Mean Corpuscular Hemoglobin 31.2 pg (28.0-32.0); Mean Corpuscular Hgb Conc. 33.9 g/dL (32.0-36.0); Mean Corpuscular Volume 92.1 fL (80.0-100.0); Monocytes # (auto) 0.5 10 ^3/uL (0-1.3); Neutrophils # (auto) 3.3 10 ^3/uL (1.6-8.6); Nucleated Red Blood Cells % 0.1 %; Platelet Count (auto) 228 10^3/uL (140-450); Red Blood Cells 4.19 10^6/uL (4.5-5.90); Red Cell Distribution Width 13.9 % (11.8-14.3); White Blood Cell 5.8 10^3/uL (4.4-10.8)
[2024-06-15 19:37] LABS: Chloride 109 mmol/L (98-107); Potassium 4.1 mmol/L (3.5-5.1); Sodium 142 mmol/L (136-145)
[2024-06-15 19:38] LABS: Anion Gap 7 (5-15); Calcium 10.2 mg/dL (8.7-10.4); Carbon Dioxide 26 mmol/L (20-31)
[2024-06-15 19:43] LABS: BUN/Creatinine Ratio 15.3 (10.0-20.0); Blood Urea Nitrogen 11 mg/dL (9-23); Glucose 93 mg/dL (74-106)
[2024-06-15] MEDS ORDERED: SODIUM CHLORIDE 0.9% 1,000 ML IV ONE (19:45)
== END 2024-06-15 20:08 | disposition left against medical advice (07) ==
LOC: ER 16:52
DX: K42.9 Umbilical hernia without obstruction or gangrene (principal); R10.33 Periumbilical pain; K21.9 Gastro-esophageal reflux disease without esophagitis; I10 Essential (primary) hypertension; F17.210 Nicotine dependence, cigarettes, uncomplicated; F15.90 Other stimulant use, unspecified, uncomplicated; Z90.49 Acquired absence of other specified parts of digestive tract; Z79.899 Other long term (current) drug therapy; Z59.00 Homelessness unspecified
CPT/HCPCS: 36415; 74176; 80048; 83605; 85025; 93005

== ENCOUNTER 2024-06-16 23:43 | Emergency (ER) | payer MEDICARE, MEDICAID ==
[~2024-06-16] VITALS: Ht 167.6 cm; Wt 85.9 kg
[2024-06-17 00:03] VITALS: BP 140/70; PULSE 90; RESP 16; O2SAT 96
--- NOTE | 2024-06-17 00:28 | ED.PDOC ---
GI ASSESSMENT HPI Comments 64-year-old male with past medical history pertinent for HTN, GERD, presents to ED for umbilical abdominal pain x5 days, associated with nausea. Patient states that he has not had an umbilical hernia for two months, however has increased in size in the last few days and causing him more pain. He currently rates his pain as 5/10 in severity. Patient reports that the pain is intermittent and is worse with certain movements. Patient denies any fever, chills, chest pain, shortness of breath, constipation. He states that he was seen here last night for the same symptoms, however he eloped prior to finding out his results. He states that he called the hospital and it was recommended that patient come back to the hospital because the plan was for him to be admitted. Patient states that his symptoms feel the same as the last couple of days and has not gotten worse. Chief Complaint: Abdominal Pain Time Seen by MD: 23:56 Primary Care Provider: NONE Reviewed Notes: Nurses Notes, Medications, Allergies Allergies: Coded Allergies: NO KNOWN ALLERGIES (Unverified , 04/03/20) Home Meds Active Scripts Hydrocodone-Acetaminophen (Hydrocodone Bitartrate/AC 5-325 mg) 1 Tab Tab, 1 TAB PO Q6HPRN PRN, #15 TAB Prov:MARCO MCCLAIN 06/17/24 Ondansetron Odt 4MG Tab (ZOFRAN PO) 4 Mg Tb, 4 MG PO Q6HPRN PRN, #20 TAB ODT TAB-DISSOLVE IN MOUTH, THEN SWALLOW Prov:MARCO MCCLAIN 06/17/24 Clindamycin Hcl (Clindamycin Hcl) 300 Mg Cap, 600 MG PO Q8HR, #42 CAP Prov:JOSSIE DO MD 01/25/21 Levofloxacin (Levaquin) 500 Mg Tab, 500 MG PO DAILY, #6 TAB Prov:JOSSIE DO MD 01/25/21 Labetalol Hcl (Labetalol Hcl) 200 Mg Tab, 1 TAB PO BID, #60 TAB Prov:NAVIN ATKINS MD 07/30/19 Losartan Potassium (Losartan Potassium) 100 Mg Tab, 100 MG PO DAILY, #30 MG Prov:NAVIN ATKINS MD 07/30/19 Fluoxetine HCl (Pmdd) (Fluoxetine HCl) 20 Mg Tab, 40 MG PO DAILY, #30 TAB Prov:NAVIN ATKINS MD 07/30/19 Reported Medications [place] Carbonate ([place] Carbonate) 300 Mg Cap, 600 MG PO DAILY for 30 Days, MG 07/29/19 Oxycodone Hcl (OxyCONTIN ER Tablet) 20 Mg Tb, 30 MG PO Q6HP PRN for PAIN SCALE 1 THRU 6, TAB 07/29/19 Omeprazole (PRILOSEC) 20 Mg Cap, 20 MG PO DAILY for 30 Days, MG 06/04/17 Mode of Arrival: Ambulatory Past Medical History PAST MEDICAL HISTORY: Anxiety, Depression, GERD, HTN Surgical History: Cholecystectomy Family History Family History: Unobtainable Social History Smoker: Cigarettes, Less Than 1 Pack/Day Alcohol: Rarely Drugs: Heroin, Marijuana, Methamphetamine Lives In: Homeless Constitutional: denies: chills, diaphoresis, fatigue, fever, malaise, sweats, weakness, others EENTM: denies: blurred vision, double vision, ear bleeding, ear discharge, ear drainage, ear pain, ear ringing, eye pain, eye redness, hearing loss, mouth pain, mouth swelling, nasal discharge, nose bleeding, nose congestion, nose pain, photophobia, tearing, throat pain, throat swelling, voice changes, others Respiratory: denies: cough, hemoptysis, orthopnea, SOB at rest, shortness of breath, SOB with excertion, stridor, wheezing, others Cardiovascular: denies: chest pain, dizzy spells, diaphoresis, Dyspnea on exertion, edema, irregular heart beat, left arm pain, lightheadedness, palpitations, PND, syncope, others Gastrointestinal: reports: abdominal pain, nausea; denies: abdomen distended, blood streaked bowels, constipated, diarrhea, dysphagia, difficulty swallowing, hematemesis, melena, poor appetite, poor fluid intake, rectal bleeding, rectal pain, vomiting, others Genitourinary: denies: burning, dysuria, flank pain, frequency, hematuria, incontinence, penile discharge, penile sore, pain, testicle pain, testicle swelling, urgency, others Neurological: denies: dizziness, fainting, headache, left sided numbness, left sided weakness, numbness, paresthesia, pre-existing deficit, right sided numbness, right sided weakness, seizure, speech problems, tingling, tremors, weakness, others Musculoskeletal: denies: back pain, gout, joint pain, joint swelling, muscle pain, muscle stiffness, neck pain, others Allergic/Immunocompromised: denies: Difficulty Healing, Frequent Infections, Hives, Itching, others Hematologic/Lymphatic: denies: anemia, blood clots, easy bleeding, easy bruising, swollen glands, others Endocrine: denies: excessive hunger, excessive sweating, excessive thirst, excessive urination, flushing, intolerance to cold, intolerance to heat, unexplained weight gain, unexplained weight loss, others Psychiatric: denies: anxiety, bipolar disorder, depression, hopeless, panic disorder, schizophrenia, sleepless, suicidal, others All Other Systems: Reviewed and Negative Physical Exam General Appearance: No Apparent Distress, Normal HEENT: Normal ENT Inspection, Pharynx Normal, TMs Normal Neck: Full Range of Motion, Non-Tender, Normal, Normal Inspection Respiratory: Chest Non-Tender, Lungs Clear, No Accessory Muscle Use, No Respiratory Distress, Normal Breath Sounds Cardiovascular: No Edema, No JVD, No Murmur, No Gallop, Normal Peripheral Pulses, Regular Rate/Rhythm Breast Exam: Deferred Gastrointestinal: Hernia (Approximately 4 x 4 cm umbilical hernia that is mildly tender to palpation.), No Organomegaly, No Pulsatile Mass, Normal Bowel Sounds, Soft, Tenderness Genitalia: Deferred Pelvic: Deferred Rectal: Deferred Extremities: No calf tenderness, Normal capillary refill, Normal inspection, Normal range of motion, Non-tender, No pedal edema Musculoskeletal : Apperance: Normal Neurologic: Alert, 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 Was a procedure done?: No GI differential Dx Differential Diagnosis: Gastritis/PUD, Gastroenteritis, Hernia X-Ray, Labs, Meds, VS Vital Signs Date Time Temp Pulse Resp B/P (MAP) Pulse Ox O2 Delivery O2 Flow Rate FiO2 06/17/24 00:03 98.1 90 16 140/70 (93) 96 X-Ray, Labs, Meds, VS Comment CT Abd/Pelv 06/15/24 IMPRESSION: 1. 5.3 cm fat containing umbilical hernia with defect in the anterior abdominal wall of 2.5 cm. This appears new when compared with the previous CT scan of 03/16/2020. 2. There are no findings to suggest bowel obstruction. 3. Gallbladder has been surgically removed. MDM: Patient with history as above presented with abdominal pain. History obtained from patient. Patient was nontoxic, stable, afebrile, ambulatory, no acute distress. Exam as above. Labs reviewed from previous visit yesterday. CBC did not show leukocytosis. Lactic acid was within normal limits. There were no electrolyte abnormalities on BMP. Independently reviewed imaging. CT abdomen/pelvis last night showed a 5.3 cm fat containing umbilical hernia. Reviewed external records. All findings were discussed with the patient. Differential diagnosis considered. Overall presentation is consistent with umbilical hernia. Low suspicion for strangulated hernia, incarcerated hernia. Patient reports that he came back today because he was told that he was going to be admitted. I have thoroughly reviewed the chart from last night and advised patient that he was going to get admitted to for pain control and surgical evaluation. There were no signs incarceration or strangulation. Advised the patient that he may or may not be admitted if there is no strangulation. The patient reports that he would not like to be admitted if it is not certain that he will be admitted and have surgery. He states that he would prefer to follow up outpatient and control his pain outpatient with a prescription. Patient states that he will return to the ED for any worsening symptoms. Ordered [place] for the patient in the ED, however he eloped prior to discharge. Prescribed [place] and Zofran for outpatient management. Disposition: Discussed the need to follow up diagnostics, including incidental findings. Discharged the patient with instructions to obtain outpatient follow up in 1-2 days of today's symptoms and findings, with strict return precautions if patient develops new or worsening symptoms. This medical document was created using the ERN dictation system. Although this document has been carefully reviewed, there may still be some phonetic and typographical errors, which are due to imperfections of the software program, and do not reflect any compromise in the patient's medical care. Time of 1ST Reevaluation: 00:35 Reevaluation 1ST: Improved Patient Education/Counseling: Diagnosis, Treatment, Prognosis, Need For Follow Up Family Education/Counseling: No Family Present Departure 1 Departure Time of Disposition: 00:35 Impression: Primary Impression: Umbilical hernia Qualified Codes: K42.9 - Umbilical hernia without obstruction or gangrene Disposition: 01 HOME / SELF CARE / HOMELESS Condition: Fair Additional Instructions: Please call the hospital to get set up with a primary care provider and then get referral to general surgeon. e-Prescriptions Hydrocodone-Acetaminophen (Hydrocodone Bitartrate/AC 5-325 mg) 1 Tab Tab 1 TAB PO Q6HPRN PRN, #15 TAB Prov: MARCO MCCLAIN 06/17/24 Ondansetron Odt 4MG Tab (ZOFRAN PO) 4 Mg Tb 4 MG PO Q6HPRN PRN, #20 TAB ODT TAB-DISSOLVE IN MOUTH, THEN SWALLOW Prov: MARCO MCCLAIN 06/17/24 Critical Care Note Critical Care Time?: No Stability Stability form required: No Heart Score Heart Score: Heart Score Response (Comments) Value History N/A 0 EKG N/A 0 Age N/A 0 Risk Factors N/A 0 Troponin N/A 0 Total 0 MARCO MCCLAIN PAC Jun 17, 2024 00:28
[2024-06-17] MEDS ORDERED: HYDROcodone-ACET 5/325MG TAB PO ONE (00:30)
[2024-06-17] MEDS ORDERED: HYDR-4902 PO (00:36)
[2024-06-17] MEDS ORDERED: ZOFR4T PO (00:36)
== END 2024-06-17 03:04 | disposition left against medical advice (07) ==
LOC: ER 23:43
DX: K42.9 Umbilical hernia without obstruction or gangrene (principal); K21.9 Gastro-esophageal reflux disease without esophagitis; I10 Essential (primary) hypertension; F17.210 Nicotine dependence, cigarettes, uncomplicated; F12.90 Cannabis use, unspecified, uncomplicated; F15.90 Other stimulant use, unspecified, uncomplicated; Z59.00 Homelessness unspecified; Z79.899 Other long term (current) drug therapy; Z90.49 Acquired absence of other specified parts of digestive tract

== ENCOUNTER 2024-10-31 18:51 | Emergency (ER) | payer MEDICAID, MEDICARE, OTHER ==
[~2024-10-31 18:51] MED LIST changes: +HYDR-4902 PO; +ZOFR4T PO
== END 2024-10-31 20:24 | disposition left against medical advice (07) ==
LOC: ER 18:51
DX: R06.02 Shortness of breath (principal); Z53.21 Procedure and treatment not carried out due to patient leaving prior to being seen by health care provider

== ENCOUNTER 2025-02-11 00:18 | Emergency (ER) | payer OTHER ==
[~2025-02-11] VITALS: Ht 170.2 cm; Wt 80.7 kg
[2025-02-11] MEDS: IBUPROFEN 800 MG TAB PO ONE (01:53)
[2025-02-11 01:57] VITALS: BP 155/110; TEMP 98.6
[2025-02-11 02:02] VITALS: PULSE 77; RESP 16; O2SAT 96
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
--- NOTE | 2025-02-11 02:34 | DVH ---
CLINICAL INDICATION: FALL TECHNIQUE: XY R WRIST 3+ VIEW XRAY Comparison: None FINDINGS/IMPRESSION: : There is no evidence of acute fracture or dislocation. Degenerative change of the trapezial metacarpal joint includes joint space narrowing, marginal osteop hytosis, subchondral sclerosis and periarticular cystic degeneration. Soft tissues are unremarkable.
[2025-02-11] MEDS ORDERED: IBUP-1455 PO (02:49)
== END 2025-02-11 03:06 | disposition home or self-care (01) ==
LOC: ER 00:18
DX: S60.211A Contusion of right wrist, initial encounter (principal); F41.9 Anxiety disorder, unspecified; F32.A Depression, unspecified; I10 Essential (primary) hypertension; F17.210 Nicotine dependence, cigarettes, uncomplicated; Z59.00 Homelessness unspecified; Z79.899 Other long term (current) drug therapy; Z90.49 Acquired absence of other specified parts of digestive tract; W22.8XXA Striking against or struck by other objects, initial encounter; Y93.89 Activity, other specified; Y92.89 Other specified places as the place of occurrence of the external cause; Y99.8 Other external cause status
CPT/HCPCS: 73110

== ENCOUNTER 2025-02-15 11:28 | Emergency (ER) | payer OTHER ==
[~2025-02-15 11:28] MED LIST changes: +IBUP-1455 PO
[2025-02-15 11:56] VITALS: BP 134/99; PULSE 69; RESP 18; TEMP 98.5; O2SAT 96
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
[2025-02-15 12:41] LABS: Hematocrit 43.7 % (41.0-53.0); Hemoglobin 14.6 g/dL (13.5-17.5); Mean Corpuscular Hemoglobin 30.4 pg (28.0-32.0); Mean Corpuscular Volume 91.1 fL (80.0-100.0); Nucleated Red Blood Cells % 0.1 %
[2025-02-15 12:58] LABS: Alanine Aminotransferase 12 U/L (7-40); Albumin 4.3 g/dL (3.2-4.8); Alkaline Phosphatase 83 U/L (46-116); Anion Gap 6 (5-15); BUN/Creatinine Ratio 15.4 (10.0-20.0); Bilirubin, Total 1.4 mg/dL (0.2-1.0); Blood Urea Nitrogen 12 mg/dL (9-23); Calcium 9.8 mg/dL (8.7-10.4); Carbon Dioxide 24 mmol/L (20-31); Chloride 110 mmol/L (98-107); Glucose 107 mg/dL (74-106); Potassium 4.2 mmol/L (3.5-5.1); Sodium 140 mmol/L (136-145); Total Protein 7.6 g/dL (5.7-8.2)
--- NOTE | 2025-02-15 13:14 | DVH ---
CT CT AB PEL WO CON-NO ORAL OR IV INDICATION: umbilical hernia EXAM DATE: 02/15/2025 12:26 PM COMPARISON: CT CT AB PEL WO CON-NO ORAL OR IV on DOS: 06/15/24 RADIATION DOSE: CTDIvol: 14.53 mGy, DLP: 730.22 mGy*cm PROCEDURE: Helical CT images were obtained of the abdomen and pelvis without IV contrast Sagittal and coronal reconstructions are provided. ORAL CONTRAST: None. ADDITIONAL IMAGES / REFORMATS: None All C T scans at this medical facility are performed using dose modulation techniques as appropriate to a p erformed exam including the following: Automated exposure control was utilized; adjustment of the MA and/or KV according to patient size; and use of iterative reconstruction technique. FINDINGS: LUNG BASE: Bibasilar atelectasis. LIVER: Normal. GALLBLADDER AND BILIARY TREE: Cholecystectomy clips are seen. No intra- or extrahepatic biliary ducta l dilation. PANCREAS: Normal. SPLEEN: Normal. BOWEL: Moderate colonic diverticulosis. The appendix is normal. ADRENALS: Normal. KIDNEYS AND URETER: Small nonobstructive right kidney stone is seen. BLADDER: Normal. REPRODUCTIVE ORGANS: Normal. LYMPH NODES:No lymphadenopathy. PERITONEUM: No ascites or free air. No other fluid collection. VESSELS: Scattered atherosclerotic calcifications are noted. RETROPERITONEUM: Normal. ABDOMINAL WALL: Moderate fat containing umbilical hernia with some mild fat stranding. BONES: Scattered osseous degenerative changes are noted. IMPRESSION: No acute intraabdominal abnormality. Small nonobstructive right kidney stone is seen. Moderate fat containing umbilical hernia with some mild fat stranding.
--- NOTE | 2025-02-15 13:35 | DVH ---
CT LS SPINE WO CONTRAST Date: 02/15/2025 12:28 PM History: back pain Comparison: None TECHNIQUE: Multiple axial CT images of the lumbosacral spine were obtained using bone algorithm. Axial and coron al reformatting was done. Bone and soft tissue windows were reviewed. Radiation Dose Information: CT Dose: CTDI volume is 29.33 mGy. Dose-length product is 859.94 mGy*cm FINDINGS: No CT evidence of definite acute fracture, spinal dislocation, or significant appearing acute subluxa tion is seen. The visualized paraspinal soft tissues are grossly unremarkable. T12-L1 There is no evidence of central spinal canal or neuroforaminal stenosis. L1-L2 There is no evidence of central spinal canal or neuroforaminal stenosis. L2-L3 There is no evidence of central spinal canal or neuroforaminal stenosis. L3-L4 There is no evidence of central spinal canal or neuroforaminal stenosis. L4-L5 There is no evidence of central spinal canal or neuroforaminal stenosis. L5-S1 There is no evidence of central spinal canal or neuroforaminal stenosis. IMPRESSION: 1. No definite CT evidence of acute fracture or dislocation of the bony lumbar spine. 2. No central canal stenosis 3. No spondylolisthesis HS:Y All CT scans at this medical facility are performed using dose modulation techniques as appropriate t o a performed exam including the following: Automated exposure control was utilized; adjustment of th e MA and/or KV according to patient size; and use of iterative reconstruction technique.
== END 2025-02-15 18:39 | disposition left against medical advice (07) ==
LOC: ER 11:28
DX: M54.50 Low back pain, unspecified (principal); M79.18 Myalgia, other site; F17.210 Nicotine dependence, cigarettes, uncomplicated; F12.90 Cannabis use, unspecified, uncomplicated; F19.90 Other psychoactive substance use, unspecified, uncomplicated; F10.90 Alcohol use, unspecified, uncomplicated; F41.9 Anxiety disorder, unspecified; F32.A Depression, unspecified; K21.9 Gastro-esophageal reflux disease without esophagitis; I10 Essential (primary) hypertension; K42.9 Umbilical hernia without obstruction or gangrene; G89.29 Other chronic pain; Z90.49 Acquired absence of other specified parts of digestive tract; Z79.899 Other long term (current) drug therapy; Z59.00 Homelessness unspecified; Y90.9 Presence of alcohol in blood, level not specified
CPT/HCPCS: 36415; 51701; 72131; 74176; 80053; 85025